=== PATIENT | male | born 1965 | race Caucasian/White ===

== ENCOUNTER → 2016-04-25 | Outpatient (CLI) | payer BC ==
[~2016-04-25] MED LIST: ALLO300T2 PO; FERR1TAB13 PO; FRRS300 PO; LECI1200 PO; LISI1TAB3 PO; LISI20TA3 PO; LSN20 PO; MULT-506 PO; ONDA8TAB6 PO; PANT40TA PO; POTA99TA PO; PROM25TA9 PO; PRT40 PO
[2016-04-25 13:20] LABS: BASO % 0.1 %; BASO ABS # 0.01 K/uL (0-0.2); COMPLETE YES; HEMATOCRIT 51.9 % (42-52); IG% 0.2 %; LYMPH % 7.3 %; LYMPH ABS # 1.12 K/uL (1.2-3.4); MEAN CELL VOLUME 95.1 fL (80-100); MEAN CORPUSCULAR HGB CONC 34.7 g/dl (32-36); MEAN PLATELET VOLUME 11.4 fL (7.4-10.4); MONO % 7.3 %; NEUT % 85.1 %; PLATELET COUNT 331 K/uL (130-400); RED BLOOD COUNT 5.46 M/uL (4.7-6.1); WHITE BLOOD COUNT 15.37 K/uL (4.8-10.8)
[2016-04-25 13:58] LABS: ALB/GLOB RATIO 0.9 (0.9-2); ALKALINE PHOSPHATASE 180 U/L (45-117); ALT/SGPT 61 U/L (12-78); AST/SGOT 47 U/L (15-37); BLOOD UREA NITROGEN 15 mg/dl (7-18); BUN/CREATININE RATIO 15.4 (10-20); CALCIUM 10.4 mg/dl (8.5-10.1); CARBON DIOXIDE 22 mmol/L (21-32); CHLORIDE 97 mmol/L (98-107); CREATININE 0.96 mg/dl (0.60-1.40); GLUCOSE 128 mg/dl (70-99); POTASSIUM 3.6 mmol/L (3.5-5.1); SODIUM 133 mmol/L (136-145)
== END | disposition home or self-care (01) ==
LOC: C.LAB1850 11:54
PROVIDERS: ATTEND Family Medicine
DX: R10.32 Left lower quadrant pain (principal); R11.2 Nausea with vomiting, unspecified

== ENCOUNTER 2016-04-26 02:06 | Inpatient (IN) | payer BC ==
[~2016-04-26] VITALS: Ht 175.3 cm; Wt 90.0 kg
[2016-04-26] MEDS ORDERED: PROMETHAZINE HCL INJ 12.5 MG in SODIUM CHLORIDE 0.9% 50ML 50 ML IV STA ×2 (02:37→03:58)
[2016-04-26] MEDS ORDERED: ALLO300T2 PO (02:40)
[2016-04-26] MEDS ORDERED: MULT-506 PO (02:40)
[2016-04-26] MEDS ORDERED: LISI1TAB3 PO (02:40)
[2016-04-26] MEDS ORDERED: ONDA8TAB6 PO (02:40)
[2016-04-26] MEDS ORDERED: PROM25TA9 PO (02:40)
[2016-04-26] MEDS ORDERED: OPTIRAY 320 IV PRN (02:45)
[2016-04-26 02:46] LABS: INR 1.1 (0.9-1.1); PARTIAL THROMBOPLASTIN RATIO 0.9; PROTHROMBIN TIME (PATIENT) 11.7 SECONDS (9.0-12.0)
[2016-04-26 02:51] LABS: ISTAT CREATININE 1.2 mg/dl (0.6-1.3); ISTAT IONIZED CALCIUM 1.1 mmol/l (1.12-1.32)
[2016-04-26 03:02] LABS: BUN/CREATININE RATIO 14.4 (10-20); CALCIUM 8.5 mg/dl (8.5-10.1); CREATININE 1.6 mg/dl (0.60-1.40); POTASSIUM 3.2 mmol/L (3.5-5.1)
[2016-04-26 03:12] LABS: BASO % 0.1 %; BASO ABS # 0.02 K/uL (0-0.2); COMPLETE YES; EOS % 0.3 %; HEMATOCRIT 40.8 % (42-52); IG% 0.5 %; LYMPH % 19.8 %; LYMPH ABS # 3.17 K/uL (1.2-3.4); MEAN CELL VOLUME 96.5 fL (80-100); MEAN CORPUSCULAR HEMOGLOBIN 32.9 pg (25-34); MEAN CORPUSCULAR HGB CONC 34.1 g/dl (32-36); MEAN PLATELET VOLUME 11.5 fL (7.4-10.4); MONO % 10.4 %; NEUT % 68.9 %; PLATELET COUNT 333 K/uL (130-400); RED BLOOD COUNT 4.23 M/uL (4.7-6.1); WHITE BLOOD COUNT 16.01 K/uL (4.8-10.8)
[2016-04-26] MEDS ORDERED: SODIUM CHLORIDE 0.9% 1000ML 1,000 ML IV STA (03:25)
[2016-04-26] MEDS ORDERED: GLUCAGON FOR INJ 1 MG VIAL SQ PRN (05:15)
[2016-04-26] MEDS ORDERED: ACETAMINOPHEN 325 MG TAB PO PRN (05:15)
[2016-04-26] MEDS ORDERED: ONDANSETRON INJ 2 MG/ML 2 ML VIAL IV PRN (05:15)
[2016-04-26] MEDS ORDERED: GLUCOSE 40% GEL 15 GM TUBE PO PRN (05:15)
[2016-04-26] MEDS ORDERED: GLUCOSE 10 TABS/TUBE PO PRN (05:15)
[2016-04-26] MEDS ORDERED: DEXTROSE 50% 50 ML SYR IV PRN (05:15)
[2016-04-26] MEDS ORDERED: ACETAMINOPHEN IV 100 ML IV PRN (05:15)
[2016-04-26] MEDS ORDERED: ZOLPIDEM TARTRATE 5 MG TAB PO PRN (05:15)
--- NOTE | 2016-04-26 05:45 | EMERGENCY ROOM VISIT NOTE ---
History Report prepared by Wade: Jamil Rockwell Under the Supervision of: Dr. Diamond Choi D.O. First contact with patient: 02:26 Chief Complaint: BLEEDING Stated Complaint: SYNCOPE/GI ASSESSMENT Nursing Triage Summary: patient brought in by ems patient reports V/D for days,patient reports 3-4 episodes of bright and dark red stool tonight patient reports 3 assisted falls at home patient reports lower abdominal pain ems reports blood pressure in 50s systolic on arrival History of Present Illness The patient is a 50 year old male who presents to the Emergency Room with complaints of persistent rectal bleeding beginning today. He states that he has "blacked out" at home three times today. He states that he has been having problems with vomiting and diarrhea since yesterday. The patient was seen by his PCP today for the vomiting and diarrhea, and was prescribed Zofran. He states that he began noticing blood in his stool after taking the Zofran. He denies noticing any blood in his vomit. The patient notes that he has not eaten anything in the past two days. He has a history of fatty liver, but states that he has not been drinking alcohol regularly. He denies any neck pain. The patient also complains of abdominal pain and nausea. He states that he had problems with dark stool several years ago, but has not had anything similar recently. His most recent colonoscopy was around three years ago. Source of History: patient Onset: Today Position: other (rectum) Quality: other (bleeding) Timing: other (persistent) Associated Symptoms: + abdominal pain, + diarrhea, + nausea, + vomiting, No neck pain Review of Systems See HPI for pertinent positives & negatives. A total of 10 systems reviewed and were otherwise negative. Past Medical & Surgical Medical Problems: (1) Dehydration (2) Enterocolitis (3) Fatty liver (4) Gout Family History No pertinent family history stated. Social History Smoking Status: Never Smoker Marital Status: Housing Status: lives with family Current/Historical Medications Scheduled Allopurinol (Zyloprim), 300 MG PO DAILY Lisinopril (Zestril), 30 MG PO DAILY Multivitamin (Multivitamin), 1 TAB PO DAILY Scheduled PRN Ondansetron Hcl (Zofran), 8 MG PO Q8 PRN for Nausea Promethazine Hcl (Phenergan), 25 MG PO TID PRN for Nausea Allergies Coded Allergies: Penicillins (Verified Allergy, Mild, 04/26/16) Physical Exam Vital Signs Date Time Temp Pulse Resp B/P Pulse Ox O2 Delivery O2 Flow Rate FiO2 04/26/16 05:05 92 14 97 04/26/16 05:03 84 18 116/70 97 Room Air 04/26/16 03:45 101/62 04/26/16 03:30 83 18 93 04/26/16 03:29 104/61 04/26/16 03:15 85 13 95 04/26/16 03:14 88/55 04/26/16 03:07 91/53 04/26/16 03:00 83 11 95 04/26/16 02:59 88/57 04/26/16 02:45 91 13 96 04/26/16 02:44 98/53 04/26/16 02:36 109/61 04/26/16 02:30 88 12 97 04/26/16 02:29 96/55 04/26/16 02:28 95 04/26/16 02:27 95/59 04/26/16 02:13 36.5 96 20 96/59 98 Room Air 04/26/16 02:13 96 Room Air Physical Exam HEENT: Head - normocephalic. 2 cm stellate laceration to the left lateral eyebrow. Pupils are equal, round, and reactive to light. Extraocular eye muscles are intact, and sclera are anicteric. Nose - moist nasal mucosa without discharge. Mouth - moist buccal mucosa. Oropharynx is nonerythematous and there is no tonsillar exudate or edema noted. Neck: Supple; no JVD, nuchal rigidity, cervical lymphadenopathy. Heart: Tachycardic rate with a regular rhythm. There is a normal S1 and S2 with no murmurs, clicks, or gallops appreciated. Lungs: Clear to auscultation bilaterally with no wheezes, rales, or rhonchi. Abdomen: Diffuse abdominal pain with palpation. Soft, nondistended, with good bowel sounds. There are no palpable pulsatile masses or hepatosplenomegaly. There is no guarding, rigidity, or rebound noted. Extremities: No evidence of cyanosis, clubbing, or edema. There are easily palpable peripheral pulses. Skin: Pale, warm and dry with good turgor and no rashes. Medical Decision & Procedures ER Provider Diagnostic Interpretation: CT results per statrad and my review. CT ABDOMEN & PELVIS: Comparison is made to ultrasound dated 07/25/[address] dated 01/13/2008. There is no evidence of acute diverticulitis. There is fluid filled small bowel and fluid levels throughout the colon suggesting enteritis/enterocolitis with diarrhea. There is no evidence of bowel obstruction. Visualized appendix is normal. The liver, gallbladder, spleen, pancreas, and adrenal glands are within normal limits. Kidneys are similar in size and contour, without hydronephrosis. Urinary bladder and prostate are unremarkable. No acute osseous findings. Bilateral pars defects at L5 with grade 1 spondylolisthesis. Laboratory Results Test 04/26/16 02:05 04/26/16 02:35 Prothrombin Time 11.7 SECONDS (9.0-12.0) Prothromb Time International Ratio 1.1 (0.9-1.1) Activated Partial Thromboplast Time 22.9 SECONDS (21.0-31.0) Partial Thromboplastin Ratio 0.9 Estimated Average Glucose 108 mg/dl Hemoglobin A1c 5.4 % (4.5-5.6) Total Bilirubin 1.0 mg/dl (0.2-1) Direct Bilirubin 0.2 mg/dl (0-0.2) Aspartate Amino Transf (AST/SGOT) 34 U/L (15-37) Alanine Aminotransferase (ALT/SGPT) 46 U/L (12-78) Alkaline Phosphatase 126 U/L (45-117) Total Protein 6.4 gm/dl (6.4-8.2) Albumin 3.1 gm/dl (3.4-5.0) Bedside Hemoglobin 15.0 g/dl (14.0-18.0) Bedside Hematocrit 44 % (42-52) Bedside Sodium 131 mEq/L (135-144) Bedside Potassium 3.1 mEq/L (3.3-5.0) Bedside Chloride 93 mEq/L (101-112) Bedside Total CO2 20 mEq/l (24-31) Bedside Blood Urea Nitrogen 28 mg/dl (7-18) Bedside Creatinine 1.2 mg/dl (0.6-1.3) Bedside Glucose (other) 254 mg/dl (70-99) Bedside Ionized Calcium (Ghada) 1.10 mmol/l (1.12-1.32) Date/Time Source Procedure Growth Status 04/26/16 02:30 Stool C.difficile Toxin B Gene (PCR) - Final No C. difficile toxin B gene detected Complete Laboratory results per my review. Medications Administered Medications (Trade) Dose Ordered Sig/Dave Route Start Time Stop Time Status Last Admin Dose Admin Promethazine HCl 12.5 mg/Sodium Chloride 50.5 ml @ 204 mls/hr NOW STAT IV 04/26/16 02:37 04/26/16 02:51 DC 04/26/16 03:16 204 MLS/HR Sodium Chloride 1,000 ml @ 250 mls/hr Q4H STAT IV 04/26/16 03:25 04/26/16 07:24 DC 04/26/16 04:13 250 MLS/HR Promethazine HCl/ Sodium Chloride (Phenergan Inj/ Nss 50ml) 50.5 ml @ 204 mls/hr NOW STAT IV 04/26/16 03:58 04/26/16 04:12 DC 04/26/16 04:11 204 MLS/HR Procedure Medications include: Promethazine HCl/NSS IV 2; normal saline solution IV Laceration Repair Location: left eyebrow Total length: 2 cm Complexity: simple Verbal consent was obtained after the risks and benefits were explained, including but not limited to bleeding, scarring, infection, pain, and bone/joint /nerve damage. At this time, the risks of the procedure are less than the risks of NOT performing the procedure. A time out was taken and the correct patient and site identified. Copious irrigation was performed using normal saline. The wound was explored for foreign bodies and none found. Examination revealed no injury to deep structures such as tendons, bone, or significant blood vessels. Debridement was not performed. The patient's eyebrow was shaved. The wound edges were approximated using Dermabond. Hemostasis and excellent approximation was achieved. Antibacterial ointment and a sterile dressing applied. Detailed wound care instructions and signs and symptoms of infection reviewed with the the patient. No complications and the patient tolerated the procedure well. ED Course 0233: Past medical records reviewed. The patient was evaluated in room B11B. A complete history and physical exam was performed. An IV lock was initiated and labs are drawn as above. The patient was typed and screened for blood. He had received 2 L of IV normal saline solution prehospital for significant hypotension. The patient had a large bloody mildly movement here upon arrival in the emergency department. 0345 the patient is resting comfortably at this time. He is hemodynamically stable. He has had no further GI bleeding. He went for a CT scan of the abdomen/pelvis. 0444: Upon reevaluation, I discussed findings and results with the patient. His nausea has improved. He verbalized agreement of the treatment plan. I spoke with Dr. Milan of the [facility] Hospitalist Service. The patient will be evaluated for further management and care. 0508: I offered to sew the patient's eyebrow laceration with sutures, but he refused. He agreed to let me use Dermabond skin glue. See the procedure note for details. Medical Decision The patient is a 50 year old male who presents to the ED with rectal bleeding. Differential diagnosis includes syncope, hypovolemia, hypotension, anemia, GI bleeding, as well as other etiologies were considered. Lab interpretation: White blood cell count: 16; hemoglobin 13.9. BUN 23. Creatinine 1.6. Glucose 249 I had evaluated the patient's laboratory studies which were drawn earlier today at the primary care office. He did have some elevated liver function tests at that time. This is a 50-year-old male patient whose had intermittent episodes of diarrhea and nausea. He has been followed by his PCP. He originally was prescribed Phenergan and then Zofran. However, today, the patient developed episodes of syncope and lightheadedness and GI bleeding. The patient did fall to the ground striking the left side of his head and suffered a small laceration to The left eyebrow. This was repaired with Dermabond. CT scan of the abdomen/ pelvis shows evidence of enterocolitis. the patient was hemodynamically stable here in the emergency department. I discussed the case with the [facility] hospitalist and they will evaluate for further management. Consults Time Called: [phone] Consulting Physician: Dr. Milan -[facility] Returned Call: [phone] Discussed the patient's case. The patient will be evaluated for further management. Impression Primary Impression: Lower GI bleed Additional Impressions: Syncope Hyperglycemia Enterocolitis Scribe Attestation The scribe's documentation has been prepared under my direction and personally reviewed by me in its entirety. I confirm that the note above accurately reflects all work, treatment, procedures, and medical decision making performed by me. Departure Information Dispostion Being Evaluated By Hospitalist Referrals Sidney Arthur M.D. (PCP) Patient Instructions My [facility] Problem Qualifiers
--- NOTE | 2016-04-26 06:12 | History and Physical ---
History & Physical Date & Time of Service: Apr 26, 2016 at 06:01 Chief Complaint: Syncope/Gi Assessment Primary Care Physician: Sidney Arthur M.D. History of Present Illness Source: patient, spouse The patient is a 50-year-old male brought into the emergency department by EMS. He reports nausea, vomiting and diarrhea for 2 days, and has had 3-4 episodes of bright and dark red stools tonight. He's had 3 near falls at home, and was reported by EMS to have a systolic blood pressure in the 50s upon arrival. He reports some generalized abdominal discomfort. He denies any questionable food intake or liquid intake, recent travel, or sick exposures. Past Medical/Surgical History Medical Problems: (1) Fatty liver Status: Chronic (2) Gout Status: Chronic Social History Smoking Status: Never Smoker Smokeless Tobacco Use: No Alcohol Use: socially Marital Status: Housing status: lives with family Occupational Status: employed Immunizations History of Influenza Vaccine: No History of Tetanus Vaccine?: Unknown History of Pneumococcal: Unknown History of Hepatitis B Vaccine: No Multi-Drug Resistant Organisms History of MDRO: No Allergies Coded Allergies: Penicillins (Verified Allergy, Mild, 04/26/16) Home Medications Scheduled Allopurinol (Zyloprim), 300 MG PO DAILY Lisinopril (Zestril), 30 MG PO DAILY Multivitamin (Multivitamin), 1 TAB PO DAILY Scheduled PRN Ondansetron Hcl (Zofran), 8 MG PO Q8 PRN for Nausea Promethazine Hcl (Phenergan), 25 MG PO TID PRN for Nausea Review of Systems The patient denies chest pain, palpitations, shortness of breath, cough, lower extremity swelling, vision change, hearing change, sore throat, weight change, blood in urine or stool, dysuria, urinary frequency or urgency, memory loss, rash, focal weakness, numbness or tingling in arms or legs, arthralgias or myalgias, back or neck pain, night sweats, or allergy symptoms. The review of systems is otherwise negative other than for that already noted above, and at least 10 systems have been reviewed. Physical Exam Vital Signs Date Time Temp Pulse Resp B/P Pulse Ox O2 Delivery O2 Flow Rate FiO2 04/26/16 05:03 84 18 116/70 97 Room Air 04/26/16 03:45 101/62 04/26/16 03:30 83 18 93 04/26/16 03:29 104/61 04/26/16 03:15 85 13 95 04/26/16 03:14 88/55 04/26/16 03:07 91/53 04/26/16 03:00 83 11 95 04/26/16 02:59 88/57 04/26/16 02:45 91 13 96 04/26/16 02:44 98/53 04/26/16 02:36 109/61 04/26/16 02:30 88 12 97 04/26/16 02:29 96/55 04/26/16 02:28 95 04/26/16 02:27 95/59 04/26/16 02:13 36.5 96 20 96/59 98 Room Air 04/26/16 02:13 96 Room Air The patient is awake, well-developed and adequately nourished, alert and oriented 3, normocephalic and atraumatic, dominik complexion, lying in bed and in no acute distress. HEENT--PERRL, EOMI, mucous membranes and oropharynx dry. Neck--supple, no JVD or bruits, thyroid normal, trachea midline, no adenopathy. Heart--normal S1 and S2, no extra beats, no murmurs, rubs or gallops. Lungs--clear bilaterally with good air movement, no respiratory distress, no accessory muscle use. Abdomen--normal bowel sounds and soft, nontender and nondistended, no hernias or masses, no organomegaly. Extremities--no cyanosis, clubbing or edema. There are good distal pulses b/l. Dermatologic--normal skin turgor, normal color, warm and dry, no abnormal lymph nodes, no rash. Dominik facial complexion as noted. Neurologic--cranial nerves II through XII grossly intact, motor and sensory examination normal. Rheumatologic--normal range of motion, nontender, muscles and joints. Psychiatric--normal affect. Diagnostics Laboratory Results Results Past 24 Hours Test 04/26/16 02:05 04/26/16 02:35 Range/Units White Blood Count 16.01 4.8-10.8 K/uL Red Blood Count 4.23 4.7-6.1 M/uL Hemoglobin 13.9 14.0-18.0 g/dL Hematocrit 40.8 42-52 % Mean Corpuscular Volume 96.5 80-100 fL Mean Corpuscular Hemoglobin 32.9 25-34 pg Mean Corpuscular Hemoglobin Concent 34.1 32-36 g/dl Platelet Count 333 130-400 K/uL Mean Platelet Volume 11.5 7.4-10.4 fL Neutrophils (%) (Auto) 68.9 % Lymphocytes (%) (Auto) 19.8 % Monocytes (%) (Auto) 10.4 % Eosinophils (%) (Auto) 0.3 % Basophils (%) (Auto) 0.1 % Neutrophils # (Auto) 11.03 1.4-6.5 K/uL Lymphocytes # (Auto) 3.17 1.2-3.4 K/uL Monocytes # (Auto) 1.66 0.11-0.59 K/uL Eosinophils # (Auto) 0.05 0-0.5 K/uL Basophils # (Auto) 0.02 0-0.2 K/uL RDW Standard Deviation 45.2 36.4-46.3 fL RDW Coefficient of Variation 13.1 11.5-14.5 % Immature Granulocyte % (Auto) 0.5 % Immature Granulocyte # (Auto) 0.08 0.00-0.02 K/uL Prothrombin Time 11.7 9.0-12.0 SECONDS Prothromb Time International Ratio 1.1 0.9-1.1 Activated Partial Thromboplast Time 22.9 21.0-31.0 SECONDS Partial Thromboplastin Ratio 0.9 Sodium Level 134 136-145 mmol/L Potassium Level 3.2 3.5-5.1 mmol/L Chloride Level 95 98-107 mmol/L Carbon Dioxide Level 21 21-32 mmol/L Anion Gap 18.0 23.0 16-25 mmol/L Blood Urea Nitrogen 23 7-18 mg/dl Creatinine 1.60 0.60-1.40 mg/dl Est Creatinine Clear Calc Drug Dose 62.6 ml/min Estimated GFR () 58.2 Estimated GFR (Non- 50.2 BUN/Creatinine Ratio 14.4 10-20 Random Glucose 249 70-99 mg/dl Calcium Level 8.5 8.5-10.1 mg/dl Total Bilirubin 1.0 0.2-1 mg/dl Direct Bilirubin 0.2 0-0.2 mg/dl Aspartate Amino Transf (AST/SGOT) 34 15-37 U/L Alanine Aminotransferase (ALT/SGPT) 46 12-78 U/L Alkaline Phosphatase 126 45-117 U/L Total Protein 6.4 6.4-8.2 gm/dl Albumin 3.1 3.4-5.0 gm/dl Bedside Hemoglobin 15.0 14.0-18.0 g/dl Bedside Hematocrit 44 42-52 % Bedside Sodium 131 135-144 mEq/L Bedside Potassium 3.1 3.3-5.0 mEq/L Bedside Chloride 93 101-112 mEq/L Bedside Total CO2 20 24-31 mEq/l Bedside Blood Urea Nitrogen 28 7-18 mg/dl Bedside Creatinine 1.2 0.6-1.3 mg/dl Bedside Glucose (other) 254 70-99 mg/dl Bedside Ionized Calcium (Ghada) 1.10 1.12-1.32 mmol/l Microbiology Results 04/26/16 C.difficile Toxin B Gene (PCR), Cosmo Batch Pending 04/26/16 Shiga Toxin Test, Cosmo Batch Pending 04/26/16 Stool Culture, Cosmo Batch Pending Impression Assessment and Plan Colitis/enterocolitis--CT suggests this diagnosis as a cause of his abdominal discomfort and rectal bleeding. He'll be admitted to the medical floor, and allowed to have a full liquid diet as tolerated. I Have ordered stool culture and stool for C. difficile studies. He'll be placed on Cipro 400 mg IV every 12 hours, Flagyl 500 mg IV every 8 hours, Protonix 40 mg IV daily, Zofran 4 mg IV every 6 hours when necessary, and normal saline with potassium chloride 20 mEq 100 mils per hour. Renal insufficiency--creatinine on entrance laboratories is 1.60. Hold lisinopril 30 mg by mouth daily. IV fluids as noted above. Check BMP and magnesium in the a.m. Hyperglycemia--no history of diabetes mellitus. We'll check hemoglobin A1c. Place on Accu-Cheks before meals and at bedtime with NovoLog coverage. Gout--continue allopurinol 300 mg by mouth daily. Level of Care Med/Surg Advanced Directives Existing Advance Directive: No Existing Living Will: No Existing Power of Linux System Administrator: No Resuscitation Status FULL RESUSCITATION VTE Prophylaxis VTE Risk Assessment Done? Y/N: Yes Risk Level: Low Given or contraindicated: SCD's Social Service Consult None Apply
[2016-04-26] MEDS: INSULIN ASPART 100 UNITS/ML 3 ML PEN SC SCH ×4 (07:00→21:00)
[2016-04-26 07:14] LABS: ESTIMATED AVERAGE GLUCOSE 108 mg/dl; HA1C FLAG Normal (Normal)
[2016-04-26 08:46] VITALS: BP 109/70; PULSE 91; TEMP 37.1; O2SAT 97
[2016-04-26 08:52] VITALS: BP 109/70; PULSE 91; TEMP 37.1; O2SAT 97; Ht 175.3 cm; Wt 90.0 kg
--- NOTE | 2016-04-26 09:08 | DIAGNOSTIC IMAGING REPORT ---
CT SCAN OF THE ABDOMEN AND PELVIS WITHOUT CONTRAST CLINICAL HISTORY: Diffuse abdominal pain. Possible diverticulitis. COMPARISON STUDY: 01/13/2008 TECHNIQUE: CT scan of the abdomen and pelvis was performed from the lung bases to the proximal femurs. Images are reviewed in the axial, sagittal, and coronal planes. IV contrast was not administered for this examination. CT DOSE: 663.62 mGy.cm FINDINGS: Lower chest: The heart is normal in size and configuration, without pericardial effusion. The lung bases and pleural spaces are clear. Liver: The unenhanced liver is normal in size, contour, and attenuation. There is no intrahepatic biliary ductal dilatation. Gallbladder: Distended. No calculi identified Spleen: Normal in size and attenuation. Pancreas: Unremarkable. Adrenal glands: Unremarkable. Kidneys: No renal, ureteral, or bladder calculi are visualized. Bowel: There are no transition zones indicate bowel obstruction. The appendix appears normal. There is no acute diverticulitis. There are fluid-filled small bowel loops, and there are air-fluid levels within the colon. An enteritis cannot be excluded. Peritoneum: There is no intraperitoneal free air or abdominal ascites. There is a tiny fat-containing ventral hernia. Vasculature: The abdominal aorta is normal in course and caliber. Adenopathy: None. Pelvic viscera: Prostatic calcifications are visualized. Skeletal structures: No destructive osseous lesions are seen. There is bilateral L5 spondylolysis. There is a grade 1 spondylolisthesis of L5 and S1. IMPRESSION: 1. No evidence of bowel obstruction. No evidence of free air 2. Normal appendix 3. No evidence of acute diverticulitis. 4. No renal, ureteral, or bladder calculi identified 5. Fluid-filled small bowel loops and air-fluid levels within the colon. An enteritis cannot be excluded. Electronically signed by: Kd Mary M.D. 04/26/2016 9:07 AM Dictated Date/Time: 04/26/2016 9:03 AM
[2016-04-26] MEDS: CIPROFLOXACIN / D5W 400 MG in PREMIXED IN D5W 200 ML IV SCH ×2 (09:19→21:01)
[2016-04-26] MEDS: METRONIDAZOLE / NSS 500 MG in PREMIXED NSS 100 ML IV SCH ×2 (09:19→15:32)
[2016-04-26] MEDS: NSS + 20MEQ KCL 1000ML 1,000 ML IV SCH ×2 (09:19→18:29)
[2016-04-26] MEDS: PANTOprazole INJ 40 MG in SYRINGE 0 ML IV SCH (10:50)
[2016-04-26 12:40] LABS: BASO % 0.1 %; BASO ABS # 0.01 K/uL (0-0.2); COMPLETE YES; EOS % 0.1 %; HEMATOCRIT 31.7 % (42-52); IG% 0.4 %; LYMPH % 16.3 %; LYMPH ABS # 1.65 K/uL (1.2-3.4); MEAN CELL VOLUME 94.6 fL (80-100); MEAN CORPUSCULAR HEMOGLOBIN 31.6 pg (25-34); MEAN CORPUSCULAR HGB CONC 33.4 g/dl (32-36); MEAN PLATELET VOLUME 10.2 fL (7.4-10.4); MONO % 8.9 %; NEUT % 74.2 %; PLATELET COUNT 247 K/uL (130-400); RED BLOOD COUNT 3.35 M/uL (4.7-6.1); WHITE BLOOD COUNT 10.15 K/uL (4.8-10.8)
[2016-04-26 13:01] LABS: CALCIUM 7.8 mg/dl (8.5-10.1); CREATININE 0.79 mg/dl (0.60-1.40); POTASSIUM 3.9 mmol/L (3.5-5.1)
--- NOTE | 2016-04-26 15:20 | Progress Note ---
Subjective Date of Service: Apr 26, 2016. Subjective Pt evaluation today including: conversation w/ patient, physical exam, lab review, review of studies, review of inpatient medication list Pain: no abdominal pain today PO Intake: adequate, clears Voiding: no voiding problems patient feeling better overall, only one BM today, was small, still with some blood no vomiting, tolerating full tray of liquids no abdominal pain updated patient and about lab work and imaging Problem List Medical Problems: (1) Hyperglycemia Status: Acute (2) Lower GI bleed Status: Acute (3) Syncope Status: Acute Review of Systems Constitutional: + fatigue, + weakness Abdomen: + diarrhea (slowing down significantly), + pain All Other Systems: Reviewed and Negative Medications Current Inpatient Medications Medications (Trade) Dose Ordered Sig/Dave Route Start Time Stop Time Status Last Admin Dose Admin Ioversol (Optiray 320) 125 ml UD PRN IV 04/26/16 02:45 04/30/16 02:44 Acetaminophen (Tylenol Tab) 650 mg Q4H PRN PO 04/26/16 05:15 05/26/16 05:14 Zolpidem Tartrate (Ambien Tab) 5 mg HSZ PRN PO 04/26/16 05:15 05/26/16 05:14 Ondansetron HCl 4 mg 4 mg Q6H PRN IV 04/26/16 05:15 05/26/16 05:14 Acetaminophen 100 ml @ 400 mls/hr Q8H PRN IV 04/26/16 05:15 05/26/16 05:14 Potassium Chloride/Sodium Chloride 1,000 ml @ 100 mls/hr Q10H IV 04/26/16 09:00 05/26/16 05:06 04/26/16 09:19 100 MLS/HR Pantoprazole Sodium/Syringe (Protonix Inj/ Syringe) 10 ml @ 5 mls/min DAILY@11 IV 04/26/16 11:00 05/26/16 10:59 04/26/16 10:50 5 MLS/MIN Insulin Aspart (novoLOG ASPART) SLIDING SCALE If C... ACHS SC 04/26/16 07:00 05/26/16 06:59 04/26/16 13:37 6 UNITS Glucose (Glucose 40% Gel) UD PRN PO 04/26/16 05:15 05/26/16 05:14 Glucose (Glucose Chew Tab) 1 tabs UD PRN PO 04/26/16 05:15 05/26/16 05:14 Dextrose (Dextrose 50% 50ML Syringe) 50 ml UD PRN IV 04/26/16 05:15 05/26/16 05:14 Glucagon 1 mg 1 mg UD PRN SQ 04/26/16 05:15 05/26/16 05:14 Ciprofloxacin/ Dextrose 400 mg/ Prmx 200 ml @ 100 mls/hr Q12 IV 04/26/16 09:00 05/06/16 08:59 04/26/16 09:19 100 MLS/HR Metronidazole/Prmx (Flagyl / Nss/ Premixed Nss) 100 ml @ 100 mls/hr Q8H IV 04/26/16 08:00 05/06/16 07:59 04/26/16 09:19 100 MLS/HR Objective Vital Signs Date Time Temp Pulse Resp B/P Pulse Ox O2 Delivery O2 Flow Rate FiO2 04/26/16 08:52 37.1 91 19 109/70 97 Room Air 04/26/16 08:46 37.1 91 19 109/70 97 Room Air 04/26/16 06:50 78 16 97 04/26/16 06:45 78 15 95 04/26/16 06:44 122/76 04/26/16 06:40 78 14 95 04/26/16 06:35 76 16 96 04/26/16 06:30 78 9 95 04/26/16 06:29 125/73 04/26/16 06:29 83 04/26/16 06:25 75 20 95 04/26/16 06:20 86 16 93 04/26/16 06:15 94 16 131/82 96 04/26/16 06:10 93 17 96 04/26/16 06:05 83 17 95 04/26/16 06:00 76 15 95 04/26/16 05:59 122/74 04/26/16 05:55 81 10 95 04/26/16 05:50 75 16 95 04/26/16 05:45 78 16 97 04/26/16 05:44 116/72 04/26/16 05:40 88 16 96 04/26/16 05:35 73 14 96 04/26/16 05:30 74 16 96 04/26/16 05:29 130/71 04/26/16 05:25 72 20 97 04/26/16 05:20 70 16 97 04/26/16 05:15 93 13 92/78 97 04/26/16 05:10 79 13 98 04/26/16 05:05 92 14 97 04/26/16 05:03 84 18 116/70 97 Room Air 04/26/16 03:45 101/62 04/26/16 03:30 83 18 93 04/26/16 03:29 104/61 04/26/16 03:15 85 13 95 04/26/16 03:14 88/55 04/26/16 03:07 91/53 04/26/16 03:00 83 11 95 04/26/16 02:59 88/57 04/26/16 02:45 91 13 96 04/26/16 02:44 98/53 04/26/16 02:36 109/61 04/26/16 02:30 88 12 97 04/26/16 02:29 96/55 04/26/16 02:28 95 04/26/16 02:27 95/59 04/26/16 02:13 36.5 96 20 96/59 98 Room Air 04/26/16 02:13 96 Room Air Physical Exam General Appearance: WD/WN, no apparent distress Eyes: normal inspection, EOMI, sclerae normal ENT: normal ENT inspection, hearing grossly normal, pharynx normal Neck: supple, no adenopathy, no JVD, trachea midline Respiratory/Chest: chest non-tender, lungs clear, normal breath sounds, no respiratory distress, no accessory muscle use Cardiovascular: regular rate, rhythm, no edema, no gallop, no JVD, no murmur Abdomen: normal bowel sounds, non tender, soft, no organomegaly Extremities: normal range of motion, non-tender, normal inspection, no pedal edema, no calf tenderness Neurologic/Psychiatric: scaler II-XII nml as tested, no motor/sensory deficits, alert, normal mood/affect, oriented x 3 Skin: normal color, warm/dry, no rash Lymphatic: no adenopathy Laboratory Results Last 24 Hours Test 04/26/16 02:05 04/26/16 02:35 04/26/16 11:25 04/26/16 12:06 White Blood Count 16.01 K/uL 10.15 K/uL Red Blood Count 4.23 M/uL 3.35 M/uL Hemoglobin 13.9 g/dL 10.6 g/dL Hematocrit 40.8 % 31.7 % Mean Corpuscular Volume 96.5 fL 94.6 fL Mean Corpuscular Hemoglobin 32.9 pg 31.6 pg Mean Corpuscular Hemoglobin Concent 34.1 g/dl 33.4 g/dl Platelet Count 333 K/uL 247 K/uL Mean Platelet Volume 11.5 fL 10.2 fL Neutrophils (%) (Auto) 68.9 % 74.2 % Lymphocytes (%) (Auto) 19.8 % 16.3 % Monocytes (%) (Auto) 10.4 % 8.9 % Eosinophils (%) (Auto) 0.3 % 0.1 % Basophils (%) (Auto) 0.1 % 0.1 % Neutrophils # (Auto) 11.03 K/uL 7.54 K/uL Lymphocytes # (Auto) 3.17 K/uL 1.65 K/uL Monocytes # (Auto) 1.66 K/uL 0.90 K/uL Eosinophils # (Auto) 0.05 K/uL 0.01 K/uL Basophils # (Auto) 0.02 K/uL 0.01 K/uL RDW Standard Deviation 45.2 fL 45.1 fL RDW Coefficient of Variation 13.1 % 13.3 % Immature Granulocyte % (Auto) 0.5 % 0.4 % Immature Granulocyte # (Auto) 0.08 K/uL 0.04 K/uL Prothrombin Time 11.7 SECONDS Prothromb Time International Ratio 1.1 Activated Partial Thromboplast Time 22.9 SECONDS Partial Thromboplastin Ratio 0.9 Sodium Level 134 mmol/L 135 mmol/L Potassium Level 3.2 mmol/L 3.9 mmol/L Chloride Level 95 mmol/L 102 mmol/L Carbon Dioxide Level 21 mmol/L 23 mmol/L Anion Gap 18.0 mmol/L 23.0 mmol/L 10.0 mmol/L Blood Urea Nitrogen 23 mg/dl 15 mg/dl Creatinine 1.60 mg/dl 0.79 mg/dl Est Creatinine Clear Calc Drug Dose 62.6 ml/min 126.9 ml/min Estimated GFR () 58.2 123.1 Estimated GFR (Non- 50.2 106.2 BUN/Creatinine Ratio 14.4 19.0 Random Glucose 249 mg/dl 115 mg/dl Estimated Average Glucose 108 mg/dl Hemoglobin A1c 5.4 % Calcium Level 8.5 mg/dl 7.8 mg/dl Total Bilirubin 1.0 mg/dl Direct Bilirubin 0.2 mg/dl Aspartate Amino Transf (AST/SGOT) 34 U/L Alanine Aminotransferase (ALT/SGPT) 46 U/L Alkaline Phosphatase 126 U/L Total Protein 6.4 gm/dl Albumin 3.1 gm/dl Bedside Hemoglobin 15.0 g/dl Bedside Hematocrit 44 % Bedside Sodium 131 mEq/L Bedside Potassium 3.1 mEq/L Bedside Chloride 93 mEq/L Bedside Total CO2 20 mEq/l Bedside Blood Urea Nitrogen 28 mg/dl Bedside Creatinine 1.2 mg/dl Bedside Glucose (other) 254 mg/dl Bedside Ionized Calcium (Ghada) 1.10 mmol/l Bedside Glucose 178 mg/dl Assessment and Plan 50 yo male with sudden onset of bloody diarrhea with abdominal pain, only one episode of vomiting - Acute bloody diarrhea: already resolving, enteritis on CT scan, continue Cipro and Flagyl C diff negative, stool culture pending no history of eating undercooked chicken or beef no family h/o inflammatory bowel disease will repeat labs tomorrow - Mild acute blood loss anemia: Hb down to 13 from 15, will repeat tomorrow - KIM: prerenal etiology, continue IV fluids, Cr down to baseline so resolved continue to hold lisinopril - Hyperglycemia, h/o DM type II diet controlled: HbA1c is 5.4, so it is well controlled likely elevated due to stress continue Novolog Plan: repeat labs tomorrow, advance diet, likely d/c to home tomorrow if feeling better
[2016-04-26 15:23] VITALS: BP 134/80; PULSE 74; TEMP 37.1; O2SAT 98
[2016-04-26 23:16] VITALS: BP 101/51; PULSE 74; TEMP 36.8; O2SAT 98
[2016-04-27] MEDS: METRONIDAZOLE / NSS 500 MG in PREMIXED NSS 100 ML IV SCH ×4 (00:26→23:37)
[2016-04-27] MEDS: NSS + 20MEQ KCL 1000ML 1,000 ML IV SCH ×3 (05:18→21:20)
[2016-04-27 07:23] LABS: BASO % 0.5 %; BASO ABS # 0.04 K/uL (0-0.2); EOS % 0.5 %; HEMATOCRIT 26.9 % (42-52); IG% 0.1 %; LYMPH ABS # 1.58 K/uL (1.2-3.4); MEAN CELL VOLUME 95.7 fL (80-100); MEAN CORPUSCULAR HEMOGLOBIN 31.7 pg (25-34); MEAN CORPUSCULAR HGB CONC 33.1 g/dl (32-36); MEAN PLATELET VOLUME 10.1 fL (7.4-10.4); NEUT % 65.9 %; PLATELET COUNT 202 K/uL (130-400); RED BLOOD COUNT 2.81 M/uL (4.7-6.1); WHITE BLOOD COUNT 7.53 K/uL (4.8-10.8)
[2016-04-27 07:49] VITALS: BP 127/70; PULSE 64; TEMP 36.7; O2SAT 99
[2016-04-27 07:52] LABS: COMPLETE YES; POLYCHROMASIA 1+
[2016-04-27 08:00] LABS: BUN/CREATININE RATIO 10.3 (10-20); CALCIUM 8.2 mg/dl (8.5-10.1); CREATININE 0.7 mg/dl (0.60-1.40); MAGNESIUM 2.1 mg/dl (1.8-2.4); POTASSIUM 3.9 mmol/L (3.5-5.1)
[2016-04-27] MEDS: INSULIN ASPART 100 UNITS/ML 3 ML PEN SC SCH ×5 (08:00→23:47)
[2016-04-27] MEDS: CIPROFLOXACIN / D5W 400 MG in PREMIXED IN D5W 200 ML IV SCH ×2 (08:55→21:17)
[2016-04-27] MEDS: PANTOprazole INJ 40 MG in SYRINGE 0 ML IV SCH (10:53)
--- NOTE | 2016-04-27 11:59 | Gastrointestinal Consultation ---
Gastrointestinal Consultation Date of Consultation: Apr 27, 2016 History of Present Illness Patient is a 50 year old male who presented to ER after several episodes of bright red blood per rectum on Thursday. He reports that he had an upset stomach while at work on and Thursday, he began to have several episodes of bright red blood (about 3) with pre-syncope type symptoms. He was brought to ER and admitted. He has done well since admission on Thursday, he has had a couple of very small volume red stools, he is not having diarrhea, stool cx's are negative. No chronic diarrhea, alarm symptoms such as weight loss or anemia that he is aware of. No family hx of GI malignancies or IBD. He feels dramatically improved, he is up walking around the room, ate normal diet this am. Hb has declined since admission, stool this am was yellow/brown. Past Medical/Surgical History Medical Problems: (1) Hyperglycemia Status: Acute (2) Lower GI bleed Status: Acute (3) Syncope Status: Acute Social History Smoking Status: Never Smoker Marital Status: Housing Status: lives with family Occupation Status: employed Allergies Coded Allergies: Penicillins (Verified Allergy, Mild, 04/26/16) Current Medications Home Meds and Scripts Medications Dose Route/Sig Max Daily Dose Days Date Category Phenergan (Promethazine HCl) 25 Mg Tab 25 Mg PO TID PRN 04/26/16 Reported Zofran (Ondansetron HCl) 8 Mg Tab 8 Mg PO Q8 PRN 04/26/16 Reported Multivitamin (Multivitamins) Tab 1 Tab PO DAILY 04/26/16 Reported Zestril (Lisinopril) 30 Mg Tab 30 Mg PO DAILY 04/26/16 Reported Zyloprim (Allopurinol) 300 Mg Tab 300 Mg PO DAILY 04/26/16 Reported Review of Systems Constitutional: No chills, No fatigue, No fever, No problem reported, No see HPI, No sweats, No weakness, No weight loss Eyes: No diplopia, No discharge, No eye pain, No problem reported, No redness, No see HPI, No worsening of vision ENT: No dental problems, No hearing loss, No nasal symptoms, No pain on swallowing, No problem reported, No see HPI, No sore throat, No tinnitus, No trouble swallowing, No unusual epistaxis Respiratory: No cough, No dyspnea at rest, No dyspnea on exertion, No hemoptysis, No problem reported, No see HPI, No shortness of breath, No sputum, No wheezing Cardiac: No PND, No chest pain, No claudication, No edema, No orthopnea, No palpitations, No problem reported, No see HPI Abdomen: + see HPI Musculoskeletal: No calf pain, No joint pain, No muscle pain, No problem reported, No see HPI, No swelling Male : No dysuria, No hematuria, No incontinence, No nocturia more than once/ night, No problem reported, No see HPI, No sexual dysfunction, No slowing stream , No urinary frequency Physical Exam Date Time Temp Pulse Resp B/P Pulse Ox O2 Delivery O2 Flow Rate FiO2 04/27/16 09:31 Room Air 04/27/16 07:49 36.7 64 17 127/70 99 Room Air 04/27/16 00:30 Room Air 04/26/16 23:16 36.8 74 16 101/51 98 Room Air 04/26/16 15:45 Room Air 04/26/16 15:23 37.1 74 18 134/80 98 Room Air General Appearance: WD/WN, + pertinent finding (up walking in room during examination) ENT: normal ENT inspection Neck: supple, no adenopathy Respiratory/Chest: chest non-tender, lungs clear, normal breath sounds Cardiovascular: regular rate, rhythm, no edema, no gallop Abdomen: normal bowel sounds, non tender Extremities: normal range of motion Neurologic/Psych: event marketing specialist II-XII nml as tested Laboratory Results Last 24 Hours Test 04/26/16 12:06 04/26/16 17:06 04/26/16 20:58 04/26/16 23:20 White Blood Count 10.15 K/uL Red Blood Count 3.35 M/uL Hemoglobin 10.6 g/dL Hematocrit 31.7 % Mean Corpuscular Volume 94.6 fL Mean Corpuscular Hemoglobin 31.6 pg Mean Corpuscular Hemoglobin Concent 33.4 g/dl Platelet Count 247 K/uL Mean Platelet Volume 10.2 fL Neutrophils (%) (Auto) 74.2 % Lymphocytes (%) (Auto) 16.3 % Monocytes (%) (Auto) 8.9 % Eosinophils (%) (Auto) 0.1 % Basophils (%) (Auto) 0.1 % Neutrophils # (Auto) 7.54 K/uL Lymphocytes # (Auto) 1.65 K/uL Monocytes # (Auto) 0.90 K/uL Eosinophils # (Auto) 0.01 K/uL Basophils # (Auto) 0.01 K/uL RDW Standard Deviation 45.1 fL RDW Coefficient of Variation 13.3 % Immature Granulocyte % (Auto) 0.4 % Immature Granulocyte # (Auto) 0.04 K/uL Sodium Level 135 mmol/L Potassium Level 3.9 mmol/L Chloride Level 102 mmol/L Carbon Dioxide Level 23 mmol/L Anion Gap 10.0 mmol/L Blood Urea Nitrogen 15 mg/dl Creatinine 0.79 mg/dl Est Creatinine Clear Calc Drug Dose 126.9 ml/min Estimated GFR () 123.1 Estimated GFR (Non- 106.2 BUN/Creatinine Ratio 19.0 Random Glucose 115 mg/dl Calcium Level 7.8 mg/dl Bedside Glucose 91 mg/dl 138 mg/dl Stool Occult Blood POSITIVE Test 04/27/16 07:10 04/27/16 08:08 White Blood Count 7.53 K/uL Red Blood Count 2.81 M/uL Hemoglobin 8.9 g/dL Hematocrit 26.9 % Mean Corpuscular Volume 95.7 fL Mean Corpuscular Hemoglobin 31.7 pg Mean Corpuscular Hemoglobin Concent 33.1 g/dl Platelet Count 202 K/uL Mean Platelet Volume 10.1 fL Neutrophils (%) (Auto) 65.9 % Lymphocytes (%) (Auto) 21.0 % Monocytes (%) (Auto) 12.0 % Eosinophils (%) (Auto) 0.5 % Basophils (%) (Auto) 0.5 % Neutrophils # (Auto) 4.96 K/uL Lymphocytes # (Auto) 1.58 K/uL Monocytes # (Auto) 0.90 K/uL Eosinophils # (Auto) 0.04 K/uL Basophils # (Auto) 0.04 K/uL RDW Standard Deviation 46.3 fL RDW Coefficient of Variation 13.4 % Immature Granulocyte % (Auto) 0.1 % Immature Granulocyte # (Auto) 0.01 K/uL Polychromasia 1+ Sodium Level 134 mmol/L Potassium Level 3.9 mmol/L Chloride Level 101 mmol/L Carbon Dioxide Level 28 mmol/L Anion Gap 5.0 mmol/L Blood Urea Nitrogen 7 mg/dl Creatinine 0.70 mg/dl Est Creatinine Clear Calc Drug Dose 143.2 ml/min Estimated GFR () 129.3 Estimated GFR (Non- 111.6 BUN/Creatinine Ratio 10.3 Random Glucose 106 mg/dl Calcium Level 8.2 mg/dl Magnesium Level 2.1 mg/dl Bedside Glucose 100 mg/dl Impression Patient is a 50 year old male who presents with hematochezia, all mostly resolved, but acute anemia without etiology. Plan -Stool cx's have been negative -improved, but etiology is still not known -given age, history, and anemia will plan on Colonoscopy-and consider EGD tomorrow as per Dr. Haque's opinion -Clears today -Colon prep tonight
--- NOTE | 2016-04-27 13:04 | Progress Note ---
Subjective Date of Service: Apr 27, 2016. Subjective Pt evaluation today including: conversation w/ patient, physical exam, lab review, review of inpatient medication list Pain: no pain today PO Intake: tolerating light diet Voiding: no voiding problems feeling better, no further bloody bowel movements, no pain today, no vomiting discussed with Dr. Almendarez, he would like to perform EGD and colonoscopy tomorrow given drop in Hb patient okay with this plan Problem List Medical Problems: (1) Hyperglycemia Status: Acute (2) Lower GI bleed Status: Acute (3) Syncope Status: Acute Review of Systems Abdomen: + GI bleeding (yesterday, none today), + diarrhea All Other Systems: Reviewed and Negative Medications Current Inpatient Medications Medications (Trade) Dose Ordered Sig/Dave Route Start Time Stop Time Status Last Admin Dose Admin Ioversol (Optiray 320) 125 ml UD PRN IV 04/26/16 02:45 04/30/16 02:44 Acetaminophen (Tylenol Tab) 650 mg Q4H PRN PO 04/26/16 05:15 05/26/16 05:14 Zolpidem Tartrate (Ambien Tab) 5 mg HSZ PRN PO 04/26/16 05:15 05/26/16 05:14 Ondansetron HCl 4 mg 4 mg Q6H PRN IV 04/26/16 05:15 05/26/16 05:14 Acetaminophen 100 ml @ 400 mls/hr Q8H PRN IV 04/26/16 05:15 05/26/16 05:14 Potassium Chloride/Sodium Chloride 1,000 ml @ 100 mls/hr Q10H IV 04/26/16 09:00 05/26/16 05:06 04/27/16 05:18 100 MLS/HR Pantoprazole Sodium/Syringe (Protonix Inj/ Syringe) 10 ml @ 5 mls/min DAILY@11 IV 04/26/16 11:00 05/26/16 10:59 04/27/16 10:53 5 MLS/MIN Insulin Aspart (novoLOG ASPART) SLIDING SCALE If C... ACHS SC 04/26/16 07:00 05/26/16 06:59 04/27/16 08:00 4 UNITS Glucose (Glucose 40% Gel) UD PRN PO 04/26/16 05:15 05/26/16 05:14 Glucose (Glucose Chew Tab) 1 tabs UD PRN PO 04/26/16 05:15 05/26/16 05:14 Dextrose (Dextrose 50% 50ML Syringe) 50 ml UD PRN IV 04/26/16 05:15 05/26/16 05:14 Glucagon 1 mg 1 mg UD PRN SQ 04/26/16 05:15 05/26/16 05:14 Ciprofloxacin/ Dextrose 400 mg/ Prmx 200 ml @ 100 mls/hr Q12 IV 04/26/16 09:00 05/06/16 08:59 04/27/16 08:55 100 MLS/HR Metronidazole/Prmx (Flagyl / Nss/ Premixed Nss) 100 ml @ 100 mls/hr Q8H IV 04/26/16 08:00 05/06/16 07:59 04/27/16 08:53 100 MLS/HR Polyethylene (Miralax Powder Packet) 68 gm TODAY@ PO 04/27/16 17:00 04/28/16 05:01 Objective Vital Signs Date Time Temp Pulse Resp B/P Pulse Ox O2 Delivery O2 Flow Rate FiO2 04/27/16 09:31 Room Air 04/27/16 07:49 36.7 64 17 127/70 99 Room Air 04/27/16 00:30 Room Air 04/26/16 23:16 36.8 74 16 101/51 98 Room Air 04/26/16 15:45 Room Air 04/26/16 15:23 37.1 74 18 134/80 98 Room Air Physical Exam General Appearance: WD/WN, no apparent distress Eyes: normal inspection, EOMI, sclerae normal ENT: normal ENT inspection, hearing grossly normal, pharynx normal Neck: supple, no adenopathy, no JVD, trachea midline Respiratory/Chest: chest non-tender, lungs clear, normal breath sounds, no respiratory distress, no accessory muscle use Cardiovascular: regular rate, rhythm, no edema, no gallop, no JVD, no murmur Abdomen: normal bowel sounds, non tender, soft, no organomegaly Extremities: normal range of motion, non-tender, normal inspection, no pedal edema, no calf tenderness Neurologic/Psychiatric: event marketing intern II-XII nml as tested, no motor/sensory deficits, alert, normal mood/affect, oriented x 3 Skin: normal color, warm/dry, no rash Laboratory Results Last 24 Hours Test 04/26/16 17:06 04/26/16 20:58 04/26/16 23:20 04/27/16 07:10 Bedside Glucose 91 mg/dl 138 mg/dl Stool Occult Blood POSITIVE White Blood Count 7.53 K/uL Red Blood Count 2.81 M/uL Hemoglobin 8.9 g/dL Hematocrit 26.9 % Mean Corpuscular Volume 95.7 fL Mean Corpuscular Hemoglobin 31.7 pg Mean Corpuscular Hemoglobin Concent 33.1 g/dl Platelet Count 202 K/uL Mean Platelet Volume 10.1 fL Neutrophils (%) (Auto) 65.9 % Lymphocytes (%) (Auto) 21.0 % Monocytes (%) (Auto) 12.0 % Eosinophils (%) (Auto) 0.5 % Basophils (%) (Auto) 0.5 % Neutrophils # (Auto) 4.96 K/uL Lymphocytes # (Auto) 1.58 K/uL Monocytes # (Auto) 0.90 K/uL Eosinophils # (Auto) 0.04 K/uL Basophils # (Auto) 0.04 K/uL RDW Standard Deviation 46.3 fL RDW Coefficient of Variation 13.4 % Immature Granulocyte % (Auto) 0.1 % Immature Granulocyte # (Auto) 0.01 K/uL Polychromasia 1+ Sodium Level 134 mmol/L Potassium Level 3.9 mmol/L Chloride Level 101 mmol/L Carbon Dioxide Level 28 mmol/L Anion Gap 5.0 mmol/L Blood Urea Nitrogen 7 mg/dl Creatinine 0.70 mg/dl Est Creatinine Clear Calc Drug Dose 143.2 ml/min Estimated GFR () 129.3 Estimated GFR (Non- 111.6 BUN/Creatinine Ratio 10.3 Random Glucose 106 mg/dl Calcium Level 8.2 mg/dl Magnesium Level 2.1 mg/dl Test 04/27/16 08:08 04/27/16 12:00 Bedside Glucose 100 mg/dl 106 mg/dl Assessment and Plan 50 yo male with sudden onset of bloody diarrhea with abdominal pain, only one episode of vomiting - Acute bloody diarrhea: resolved, had two brown BM today enteritis on CT scan, continue Cipro and Flagyl today, day # 2 C diff negative, stool culture negative no history of eating undercooked chicken or beef no family h/o inflammatory bowel disease plan for endoscopy tomorrow - Acute blood loss anemia: Hb down to 8.9 from 13.9, 5gm dropped, asked for GI evaluation plan to have EGD and colonoscopy tomorrow NPO after midnight, prep tonight - KIM: prerenal etiology, Cr down to baseline so resolved, stop fluids continue to hold lisinopril and can resume on d/c - Hyperglycemia, h/o DM type II diet controlled: HbA1c is 5.4, so it is well controlled likely elevated due to stress continue Novolog Plan: endoscopy tomorrow, discharge pending findings, should discuss with GI tomorrow
[2016-04-27 15:35] VITALS: BP 120/72; PULSE 66; TEMP 36.2; O2SAT 98
[2016-04-27] MEDS: POLYETHYLENE (MIRALAX) 17 GM PACK PO SCH (17:03)
[2016-04-27] MEDS ORDERED: NURSING DECISION MEDICATION ORDER SCH (22:45)
[2016-04-28 00:17] VITALS: BP 124/66; PULSE 68; TEMP 36.8; O2SAT 98
[2016-04-28 00:30] VITALS: BP 124/66; PULSE 68; TEMP 36.8; O2SAT 98
[2016-04-28] MEDS: POLYETHYLENE (MIRALAX) 17 GM PACK PO SCH (05:07)
[2016-04-28] MEDS: INSULIN ASPART 100 UNITS/ML 3 ML PEN SC SCH ×4 (05:44→22:05)
[2016-04-28 07:11] VITALS: BP 112/65; PULSE 66; TEMP 36.8; O2SAT 97
[2016-04-28 07:36] LABS: BASO % 0.3 %; BASO ABS # 0.02 K/uL (0-0.2); EOS % 0.9 %; HEMATOCRIT 25.6 % (42-52); IG% 0.3 %; LYMPH ABS # 1.27 K/uL (1.2-3.4); MEAN CELL VOLUME 94.5 fL (80-100); MEAN CORPUSCULAR HEMOGLOBIN 31.4 pg (25-34); MEAN CORPUSCULAR HGB CONC 33.2 g/dl (32-36); MEAN PLATELET VOLUME 9.6 fL (7.4-10.4); MONO % 10.1 %; NEUT % 70.4 %; PLATELET COUNT 233 K/uL (130-400); RED BLOOD COUNT 2.71 M/uL (4.7-6.1); WHITE BLOOD COUNT 7.05 K/uL (4.8-10.8)
[2016-04-28 08:16] LABS: BUN/CREATININE RATIO 5.5 (10-20); CALCIUM 8.3 mg/dl (8.5-10.1); CREATININE 0.69 mg/dl (0.60-1.40); MAGNESIUM 2.3 mg/dl (1.8-2.4); POTASSIUM 3.7 mmol/L (3.5-5.1)
[2016-04-28] MEDS: METRONIDAZOLE / NSS 500 MG in PREMIXED NSS 100 ML IV SCH ×2 (08:29→16:22)
[2016-04-28 08:58] LABS: COMPLETE YES
[2016-04-28] MEDS ORDERED: MIDAZOLAM HCL 1 MG/ML 2ML VIAL ONE (09:10)
--- NOTE | 2016-04-28 09:11 | Progress Note ---
Subjective Date of Service: Apr 28, 2016. Subjective Pt evaluation today including: conversation w/ patient, conversation w/ family , physical exam, chart review, lab review, review of studies, review of inpatient medication list Just came back from EGD/c-scope. Feels hungry and thirsty. EGD and colonoscopy results noted. No abd pain, no cp, no sob. Problem List Medical Problems: (1) Hyperglycemia Status: Acute (2) Lower GI bleed Status: Acute (3) Syncope Status: Acute Review of Systems All Other Systems: Reviewed and Negative Medications Acetaminophen 100 ml @ 400 mls/hr Q8H PRN IV; Start 04/26/16 at 05:15; Stop 05/26/16 at 05:14 Acetaminophen (Tylenol Tab) 650 mg Q4H PRN PO; Start 04/26/16 at 05:15; Stop at 05:14 Ciprofloxacin/ Dextrose 400 mg/ Prmx 200 ml @ 100 mls/hr Q12 IV Last administered on 04/27/16 21:17; Admin Dose 100 MLS/HR; Start 04/26/16 at 09:00 ; Stop 05/06/16 at 08:59 Dextrose (Dextrose 50% 50ML Syringe) 50 ml UD PRN IV; Start 04/26/16 at 05:15; Stop 05/26/16 at 05:14 Glucagon 1 mg 1 mg UD PRN SQ; Start 04/26/16 at 05:15; Stop 05/26/16 at 05:14 Glucose (Glucose 40% Gel) UD PRN PO; Start 04/26/16 at 05:15; Stop 05/26/16 at 05:14 Glucose (Glucose Chew Tab) 1 tabs UD PRN PO; Start 04/26/16 at 05:15; Stop at 05:14 Insulin Aspart (novoLOG ASPART) SLIDING SCALE If C... Q6 SC; Start at 00:00; Stop 05/28/16 at 00:00 Ioversol (Optiray 320) 125 ml UD PRN IV; Start 04/26/16 at 02:45; Stop 04/30/16 at 02:44 Metronidazole/Prmx (Flagyl / Nss/ Premixed Nss) 100 ml @ 100 mls/hr Q8H IV Last administered on 04/28/16 08:29; Admin Dose 100 MLS/HR; Start 04/26/16 at 08:00; Stop 05/06/16 at 07:59 Ondansetron HCl 4 mg 4 mg Q6H PRN IV; Start 04/26/16 at 05:15; Stop 05/26/16 at 05:14 Pantoprazole Sodium/Syringe (Protonix Inj/ Syringe) 10 ml @ 5 mls/min DAILY@11 IV Last administered on 04/27/16 10:53; Admin Dose 5 MLS/MIN; Start 04/26/16 at 11:00; Stop 05/26/16 at 10:59 Potassium Chloride/Sodium Chloride 1,000 ml @ 100 mls/hr Q10H IV Last administered on 04/27/16 21:20; Admin Dose 100 MLS/HR; Start 04/26/16 at 09:00 ; Stop 05/26/16 at 05:06 Zolpidem Tartrate (Ambien Tab) 5 mg HSZ PRN PO; Start 04/26/16 at 05:15; Stop 05/26/16 at 05:14 Objective Vital Signs Date Time Temp Pulse Resp B/P Pulse Ox O2 Delivery O2 Flow Rate FiO2 04/28/16 07:11 36.8 66 16 112/65 97 Room Air 04/28/16 00:30 36.8 68 17 124/66 98 Room Air 04/28/16 00:17 36.8 68 17 124/66 98 Room Air 04/27/16 20:47 Room Air 04/27/16 15:35 36.2 66 16 120/72 98 Room Air 04/27/16 15:20 Room Air 04/27/16 09:31 Room Air Physical Exam Comments: nad, aox3, coherent with fluent speech eomi, perrl, anicteric s1 s2 rrr, no m/r/g ctab no w/r/r abd soft, nt/nd +BS no LE edema cn 2-12 grossly intact without facial drooping Laboratory Results Last 24 Hours Test 04/27/16 12:00 04/27/16 16:35 04/27/16 20:40 04/27/16 23:42 Bedside Glucose 106 mg/dl 88 mg/dl 125 mg/dl 98 mg/dl Test 04/28/16 05:32 04/28/16 07:00 04/28/16 08:19 Bedside Glucose 138 mg/dl 88 mg/dl White Blood Count 7.05 K/uL Red Blood Count 2.71 M/uL Hemoglobin 8.5 g/dL Hematocrit 25.6 % Mean Corpuscular Volume 94.5 fL Mean Corpuscular Hemoglobin 31.4 pg Mean Corpuscular Hemoglobin Concent 33.2 g/dl Platelet Count 233 K/uL Mean Platelet Volume 9.6 fL Neutrophils (%) (Auto) 70.4 % Lymphocytes (%) (Auto) 18.0 % Monocytes (%) (Auto) 10.1 % Eosinophils (%) (Auto) 0.9 % Basophils (%) (Auto) 0.3 % Neutrophils # (Auto) 4.97 K/uL Lymphocytes # (Auto) 1.27 K/uL Monocytes # (Auto) 0.71 K/uL Eosinophils # (Auto) 0.06 K/uL Basophils # (Auto) 0.02 K/uL RDW Standard Deviation 45.8 fL RDW Coefficient of Variation 13.3 % Immature Granulocyte % (Auto) 0.3 % Immature Granulocyte # (Auto) 0.02 K/uL Red Blood Cell Morphology Unremarkable Sodium Level 137 mmol/L Potassium Level 3.7 mmol/L Chloride Level 102 mmol/L Carbon Dioxide Level 29 mmol/L Anion Gap 6.0 mmol/L Blood Urea Nitrogen 4 mg/dl Creatinine 0.69 mg/dl Est Creatinine Clear Calc Drug Dose 145.3 ml/min Estimated GFR () 130.1 Estimated GFR (Non- 112.3 BUN/Creatinine Ratio 5.5 Random Glucose 89 mg/dl Calcium Level 8.3 mg/dl Magnesium Level 2.3 mg/dl Impression: - Normal esophagus. - Z-line regular, 36 cm from the incisors. - Gastritis. Biopsied. - One non-obstructing non-bleeding duodenal ulcer with a visible vessel. Injected. Treated with bipolar cautery. - Nodular mucosa at 2nd part of the duodenum and at 3rd part of the duodenum. Biopsied. Recommendation: - Perform a colonoscopy as previously scheduled. - Give Protonix (pantoprazole): initiate therapy with 80 mg IV bolus, then 8 mg/hr IV by continuous infusion for 3 days. The Protonix 40 mg per day. - Repeat the upper endoscopy in 6 weeks for surveillance. Maryjane Haque D.O. Impression: - The examined portion of the ileum was normal. - Mild diverticulosis in the entire examined colon. 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 Biopsied. - Internal hemorrhoids. - The examination was otherwise normal. Recommendation: - Discharge patient to home (ambulatory). - Advance diet as tolerated today. - Await pathology results. - Repeat colonoscopy in 3 years for surveillance based on pathology results. Maryjane Haque D.O. Assessment and Plan 50 yo M with abdominal pain, n/v, BRBPR 1. abd pain/brbpr - EGD/colonoscopy today - non-bleeding ulcer with visible vessel s/p cautery - will require 3-day infusion of protonix followed by po protonix daily - biopsies of duodenum and colon to be f/u outpatient with GI - will need repeat EGD in 6 weeks to re-assess ulcer - repeat colonoscopy in 3 years 2. hyperglycemia - a1c 5.4, reports no h/o DM - cont to monitor glucose 3. KIM - 2/2 volume depletion + failure of autoregulation from ACEI - resolved 4. Electrolyte abnormalities - hyponatremia with hypokalemia - likely from decreased po intake - resolved
[2016-04-28] MEDS ORDERED: PROPOFOL IV EMULSION 10 MG/ML 20 ML VIAL IV ONE (09:59)
[2016-04-28] MEDS ORDERED: LIDOCAINE HCL 2% 2 ML VIAL (20MG/ML) ONE (09:59)
--- NOTE | 2016-04-28 10:06 | Anesthesiology Progress Note ---
Anesthesia Post Op Note Date & Time Apr 28, 2016 at 10:06 Vital Signs Pain Intensity: 0 Vital Signs Past 12 Hours Date Time Temp Pulse Resp B/P Pulse Ox O2 Delivery O2 Flow Rate FiO2 04/28/16 10:00 68 16 94/55 99 Room Air 04/28/16 09:07 37.2 67 18 133/68 99 Room Air 04/28/16 07:40 Room Air 04/28/16 07:11 36.8 66 16 112/65 97 Room Air 04/28/16 00:30 36.8 68 17 124/66 98 Room Air 04/28/16 00:17 36.8 68 17 124/66 98 Room Air Notes Mental Status: alert / awake / arousable, participated in evaluation Pt Amnestic to Procedure: Yes Nausea / Vomiting: adequately controlled Pain: adequately controlled Airway Patency, RR, SpO2: stable & adequate BP & HR: stable & adequate Hydration State: stable & adequate Anesthetic Complications: no major complications apparent
[2016-04-28 10:53] VITALS: BP 118/66; PULSE 66; TEMP 36.6; O2SAT 97
--- NOTE | 2016-04-28 11:06 | GI REPORT ---
Procedure Date: 04/28/2016 9:27 AM Procedure: Upper GI endoscopy Indications: Acute post hemorrhagic anemia Medicines: Monitored Anesthesia Care Complications: No immediate complications. Estimated blood loss: Minimal. Estimated Blood Loss: Estimated blood loss was minimal. Procedure: Pre-Anesthesia Assessment: - Prior to the procedure, a History and Physical was performed, and patient medications, allergies and sensitivities were reviewed. The patient's tolerance of previous anesthesia was reviewed. - The risks and benefits of the procedure and the sedation options and risks were discussed with the patient. All questions were answered and informed consent was obtained. - Patient identification and proposed procedure were verified prior to the procedure by the physician, the nurse and the account development representative. The procedure was verified in the procedure room. - Pre-procedure physical examination revealed no contraindications to sedation. - ASA Grade Assessment: II - A patient with mild systemic disease. - The anesthesia plan was to use monitored anesthesia care (MAC). - After reviewing the risks and benefits, the patient was deemed in satisfactory condition to undergo the procedure. - Immediately prior to administration of medications, the patient was re-assessed for adequacy to receive sedatives. - The heart rate, respiratory rate, oxygen saturations, blood pressure, adequacy of pulmonary ventilation, and response to care were monitored throughout the procedure. - The physical status of the patient was re-assessed after the procedure. After obtaining informed consent, the endoscope was passed under direct vision. Throughout the procedure, the patient's blood pressure, pulse, and oxygen saturations were monitored continuously. The Scope was introduced through the mouth, and advanced to the third part of duodenum. The upper GI endoscopy was accomplished without difficulty. The patient tolerated the procedure well. Findings: The examined esophagus was normal. The Z-line was regular and was found 36 cm from the incisors. Diffuse mild inflammation characterized by congestion (edema), erythema and granularity was found in the entire examined stomach. Biopsies were taken with a cold forceps for histology. Estimated blood loss was minimal. One non-obstructing non-bleeding cratered duodenal ulcer with a visible vessel was found in the duodenal bulb. The lesion was 15 mm in largest dimension. Area was successfully injected with 2 mL of a 1:10,000 solution of epinephrine for hemostasis. Coagulation for hemostasis using bipolar probe was successful. Diffuse nodular mucosa was found in the second part of the duodenum and in the third part of the duodenum. Biopsies for histology were taken with a cold forceps for evaluation of celiac disease. Estimated blood loss was minimal. Impression: - Normal esophagus. - Z-line regular, 36 cm from the incisors. - Gastritis. Biopsied. - One non-obstructing non-bleeding duodenal ulcer with a visible vessel. Injected. Treated with bipolar cautery. - Nodular mucosa at 2nd part of the duodenum and at 3rd part of the duodenum. Biopsied. Recommendation: - Perform a colonoscopy as previously scheduled. - Give Protonix (pantoprazole): initiate therapy with 80 mg IV bolus, then 8 mg/hr IV by continuous infusion for 3 days. The Protonix 40 mg per day. - Repeat the upper endoscopy in 6 weeks for surveillance. Maryjane Haque D.O. Maryjane Haque, 04/28/2016 10:06:33 AM This report has been signed electronically. Note Initiated On: 04/28/2016 9:27 AM I attest to the content of the Intraoperative Record and orders documented therein, exceptions below
--- NOTE | 2016-04-28 11:06 | GI REPORT ---
Procedure Date: 04/28/2016 9:38 AM Procedure: Colonoscopy Indications: Hematochezia Medicines: Monitored Anesthesia Care Complications: No immediate complications. Estimated blood loss: Minimal. Estimated Blood Loss: Estimated blood loss was minimal. Procedure: Pre-Anesthesia Assessment: - Prior to the procedure, a History and Physical was performed, and patient medications, allergies and sensitivities were reviewed. The patient's tolerance of previous anesthesia was reviewed. - The risks and benefits of the procedure and the sedation options and risks were discussed with the patient. All questions were answered and informed consent was obtained. - Patient identification and proposed procedure were verified prior to the procedure by the physician, the nurse and the harness cutter. The procedure was verified in the procedure room. - Pre-procedure physical examination revealed no contraindications to sedation. - ASA Grade Assessment: II - A patient with mild systemic disease. - After reviewing the risks and benefits, the patient was deemed in satisfactory condition to undergo the procedure. - The anesthesia plan was to use monitored anesthesia care (MAC). - Immediately prior to administration of medications, the patient was re-assessed for adequacy to receive sedatives. - The heart rate, respiratory rate, oxygen saturations, blood pressure, adequacy of pulmonary ventilation, and response to care were monitored throughout the procedure. - The physical status of the patient was re-assessed after the procedure. After I obtained informed consent, the scope was passed under direct vision. Throughout the procedure, the patient's blood pressure, pulse, and oxygen saturations were monitored continuously. The On-site loaner was introduced through the anus and advanced to the terminal ileum. The colonoscopy was performed without difficulty. The patient tolerated the procedure well. The quality of the bowel preparation was adequate to identify polyps 6 mm and larger in size. Findings: The perianal and digital rectal examinations were normal. Pertinent negatives include normal sphincter tone. The terminal ileum appeared normal. Many small-mouthed diverticula were found in the entire colon. A yellow appearing submucosal mass was found in the sigmoid colon. No bleeding was present. Biopsies were taken with a cold forceps for histology. Estimated blood loss was minimal. Internal hemorrhoids were found during retroflexion. The hemorrhoids were mild. The exam was otherwise without abnormality. Impression: - The examined portion of the ileum was normal. - Mild diverticulosis in the entire examined colon. 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 Biopsied. - Internal hemorrhoids. - The examination was otherwise normal. Recommendation: - Discharge patient to home (ambulatory). - Advance diet as tolerated today. - Await pathology results. - Repeat colonoscopy in 3 years for surveillance based on pathology results. Maryjane Haque D.O. Maryjane Haque, 04/28/2016 10:09:57 AM This report has been signed electronically. Note Initiated On: 04/28/2016 9:38 AM I attest to the content of the Intraoperative Record and orders documented therein, exceptions below
[2016-04-28] MEDS: NSS + 20MEQ KCL 1000ML 1,000 ML IV SCH ×2 (11:30→21:43)
[2016-04-28] MEDS: CIPROFLOXACIN / D5W 400 MG in PREMIXED IN D5W 200 ML IV SCH ×2 (11:30→21:44)
[2016-04-28] MEDS ORDERED: PANTOprazole INJ 80 MG in DEXTROSE 5% 100ML IV ONE (11:45)
[2016-04-28] MEDS: PANTOprazole INJ 40 MG in DEXTROSE 5% 100ML IV SCH ×3 (13:02→22:01)
[2016-04-28] MEDS ORDERED: NURSING VERBAL MED ORDER ONE (13:15)
[2016-04-28 15:38] VITALS: BP 124/70; PULSE 60; TEMP 36.2; O2SAT 99
[2016-04-28 18:44] LABS: HEMATOCRIT 27.5 % (42-52)
[2016-04-28 23:05] VITALS: BP 121/65; PULSE 73; TEMP 36.4; O2SAT 99
[2016-04-29] MEDS: METRONIDAZOLE / NSS 500 MG in PREMIXED NSS 100 ML IV SCH (00:50)
[2016-04-29] MEDS: PANTOprazole INJ 40 MG in DEXTROSE 5% 100ML IV SCH ×5 (03:30→23:30)
[2016-04-29] MEDS: NSS + 20MEQ KCL 1000ML 1,000 ML IV SCH ×2 (06:19→17:10)
[2016-04-29 07:22] VITALS: BP 127/64; PULSE 64; TEMP 36.8; O2SAT 99
[2016-04-29 07:51] LABS: BASO % 0.3 %; BASO ABS # 0.02 K/uL (0-0.2); EOS % 1.1 %; HEMATOCRIT 26.2 % (42-52); IG% 0.1 %; LYMPH % 16.6 %; MEAN CELL VOLUME 97.8 fL (80-100); MEAN CORPUSCULAR HEMOGLOBIN 31.3 pg (25-34); MEAN CORPUSCULAR HGB CONC 32.1 g/dl (32-36); MEAN PLATELET VOLUME 10.6 fL (7.4-10.4); MONO % 8.9 %; PLATELET COUNT 258 K/uL (130-400); RED BLOOD COUNT 2.68 M/uL (4.7-6.1); WHITE BLOOD COUNT 7.22 K/uL (4.8-10.8)
[2016-04-29] MEDS: INSULIN ASPART 100 UNITS/ML 3 ML PEN SC SCH (08:00)
[2016-04-29 08:17] LABS: COMPLETE YES
[2016-04-29 08:18] LABS: BUN/CREATININE RATIO 3.2 (10-20); CALCIUM 8.3 mg/dl (8.5-10.1); CREATININE 0.73 mg/dl (0.60-1.40); MAGNESIUM 2.3 mg/dl (1.8-2.4); POTASSIUM 3.7 mmol/L (3.5-5.1)
[2016-04-29] MEDS ORDERED: NURSING VERBAL MED ORDER ONE (10:15)
--- NOTE | 2016-04-29 10:48 | Gastroenterology Progress Note ---
Progress Note Date of Service: Apr 29, 2016 Subjective Pt evaluation today including: conversation w/ patient, physical exam, lab review Pt. was seen and evaluated this morning. He reports that he is hungry and would like to advance his diet. Denies any abdominal pain, nausea, vomiting, black/ bloody stools/emesis. He reports that he has had two loose/semi-formed stools since we have seen him yesterday. EGD 04/28/16: gastritis, nonobstructing nonbleeding duodenal ulcer - follow up EGD in 6 weeks Colonoscopy 04/28/16: sigmoid colon mass - biopsy pending, diverticula, internal hemorrhoids - follow up 3 years pending biopsy results Review of Systems Constitutional: No chills, No fever Respiratory: No cough, No shortness of breath Cardiac: No chest pain, No edema Abdomen: No GI bleeding, No constipation, No nausea, No pain, No vomiting Medications Current Inpatient Medications Medications (Trade) Dose Ordered Sig/Dave Route Start Time Stop Time Status Last Admin Dose Admin Ioversol (Optiray 320) 125 ml UD PRN IV 04/26/16 02:45 04/30/16 02:44 Acetaminophen (Tylenol Tab) 650 mg Q4H PRN PO 04/26/16 05:15 05/26/16 05:14 Zolpidem Tartrate (Ambien Tab) 5 mg HSZ PRN PO 04/26/16 05:15 05/26/16 05:14 Ondansetron HCl 4 mg 4 mg Q6H PRN IV 04/26/16 05:15 05/26/16 05:14 Acetaminophen 100 ml @ 400 mls/hr Q8H PRN IV 04/26/16 05:15 05/26/16 05:14 Potassium Chloride/Sodium Chloride (Nss + 20meq KCl 1000ml) 1,000 ml @ 100 mls/hr Q10H IV 04/26/16 09:00 05/26/16 05:06 04/29/16 06:19 100 MLS/HR Glucose (Glucose 40% Gel) UD PRN PO 04/26/16 05:15 05/26/16 05:14 Glucose (Glucose Chew Tab) 1 tabs UD PRN PO 04/26/16 05:15 05/26/16 05:14 Dextrose (Dextrose 50% 50ML Syringe) 50 ml UD PRN IV 04/26/16 05:15 05/26/16 05:14 Glucagon 1 mg 1 mg UD PRN SQ 04/26/16 05:15 05/26/16 05:14 Pantoprazole Sodium/Dextrose (Protonix Inj/D5 100ml) 100 ml @ 20 mls/hr Q5H IV 04/28/16 12:00 05/28/16 11:59 04/29/16 07:50 20 MLS/HR Objective Vital Signs Date Time Temp Pulse Resp B/P Pulse Ox O2 Delivery O2 Flow Rate FiO2 04/29/16 08:00 Room Air 04/29/16 07:22 36.8 64 16 127/64 99 Room Air 04/29/16 00:45 Room Air 04/28/16 23:05 36.4 73 16 121/65 99 Room Air 04/28/16 16:00 Room Air 04/28/16 15:38 36.2 60 14 124/70 99 Room Air 04/28/16 10:53 36.6 66 16 118/66 97 Room Air Physical Exam General Appearance: no apparent distress Eyes: PERRL ENT: hearing grossly normal Neck: supple Respiratory/Chest: lungs clear, normal breath sounds, no respiratory distress, no accessory muscle use Cardiovascular: regular rate, rhythm, no edema, no gallop, no JVD Abdomen: non tender, soft, no organomegaly, no pulsatile mass Neurologic/Psych: alert, normal mood/affect, oriented x 3 Skin: normal color Laboratory Results Last 24 Hours Test 04/28/16 11:40 04/28/16 17:28 04/28/16 18:28 04/28/16 22:04 Bedside Glucose 86 mg/dl 81 mg/dl 70 mg/dl Hemoglobin 8.9 g/dL Hematocrit 27.5 % Test 04/29/16 07:10 04/29/16 07:51 White Blood Count 7.22 K/uL Red Blood Count 2.68 M/uL Hemoglobin 8.4 g/dL Hematocrit 26.2 % Mean Corpuscular Volume 97.8 fL Mean Corpuscular Hemoglobin 31.3 pg Mean Corpuscular Hemoglobin Concent 32.1 g/dl Platelet Count 258 K/uL Mean Platelet Volume 10.6 fL Neutrophils (%) (Auto) 73.0 % Lymphocytes (%) (Auto) 16.6 % Monocytes (%) (Auto) 8.9 % Eosinophils (%) (Auto) 1.1 % Basophils (%) (Auto) 0.3 % Neutrophils # (Auto) 5.27 K/uL Lymphocytes # (Auto) 1.20 K/uL Monocytes # (Auto) 0.64 K/uL Eosinophils # (Auto) 0.08 K/uL Basophils # (Auto) 0.02 K/uL RDW Standard Deviation 47.9 fL RDW Coefficient of Variation 13.5 % Immature Granulocyte % (Auto) 0.1 % Immature Granulocyte # (Auto) 0.01 K/uL Red Blood Cell Morphology Unremarkable Sodium Level 137 mmol/L Potassium Level 3.7 mmol/L Chloride Level 102 mmol/L Carbon Dioxide Level 26 mmol/L Anion Gap 9.0 mmol/L Blood Urea Nitrogen 2 mg/dl Creatinine 0.73 mg/dl Est Creatinine Clear Calc Drug Dose 137.3 ml/min Estimated GFR () 127.1 Estimated GFR (Non- 109.7 BUN/Creatinine Ratio 3.2 Random Glucose 100 mg/dl Calcium Level 8.3 mg/dl Magnesium Level 2.3 mg/dl Bedside Glucose 101 mg/dl Assessment and Plan Mr. Childress is a 50 year old with BRBPR. He had an EGD and colonoscopy yesterday + diverticula and + duodenal ulcer. Protonix bolus and drip started. Continue IV Protonix through Switch to 40 mg Protonix BID daily x 4 weeks then 40 mg Protonix once daily at discharge Watch HGB monitor stools Transfuse if needed Advance diet as tolerated Suggest 6-8 weeks of iron 325 mg daily GI to sign off and watch peripherally. Please call with any questions. I have seen and evaluated the patient. He notes feeling well today. I would suggest continuing with Protonix for another 24 hours and transition to Protonix 40 g twice daily for 4 weeks then 1 time daily thereafter. The patient should also be discharged on daily iron supplement. We will plan to repeat an upper endoscopy in about 6-8 weeks. Please call with any questions or concerns. If patient doing well tomorrow afternoon may consider early discharge.
[2016-04-29 15:09] VITALS: BP 160/75; PULSE 66; TEMP 36.9; O2SAT 99
--- NOTE | 2016-04-29 15:20 | Progress Note ---
Subjective Date of Service: Apr 29, 2016. Subjective Pt evaluation today including: conversation w/ patient, physical exam, chart review, review of inpatient medication list Feeling fine. No further n/v/coffee-ground emesis. No dark stools. GOod appetite. Problem List Medical Problems: (1) Hyperglycemia Status: Acute (2) Lower GI bleed Status: Acute (3) Syncope Status: Acute Review of Systems All Other Systems: Reviewed and Negative Medications Acetaminophen 100 ml @ 400 mls/hr Q8H PRN IV; Start 04/26/16 at 05:15; Stop 05/26/16 at 05:14 Acetaminophen (Tylenol Tab) 650 mg Q4H PRN PO; Start 04/26/16 at 05:15; Stop at 05:14 Dextrose (Dextrose 50% 50ML Syringe) 50 ml UD PRN IV; Start 04/26/16 at 05:15; Stop 05/26/16 at 05:14 Ferrous Sulfate (Feosol Tab) 325 mg QAM PO; Start 04/30/16 at 09:00; Stop at 08:59 Glucagon 1 mg 1 mg UD PRN SQ; Start 04/26/16 at 05:15; Stop 05/26/16 at 05:14 Glucose (Glucose 40% Gel) UD PRN PO; Start 04/26/16 at 05:15; Stop 05/26/16 at 05:14 Glucose (Glucose Chew Tab) 1 tabs UD PRN PO; Start 04/26/16 at 05:15; Stop at 05:14 Ioversol (Optiray 320) 125 ml UD PRN IV; Start 04/26/16 at 02:45; Stop 04/30/16 at 02:44 Ondansetron HCl 4 mg 4 mg Q6H PRN IV; Start 04/26/16 at 05:15; Stop 05/26/16 at 05:14 Pantoprazole Sodium/Dextrose (Protonix Inj/D5 100ml) 100 ml @ 20 mls/hr Q5H IV Last administered on 04/29/16t 13:19; Admin Dose 20 MLS/HR; Start 04/28/16 at 12 :00; Stop 05/28/16 at 11:59 Potassium Chloride/Sodium Chloride (Nss + 20meq KCl 1000ml) 1,000 ml @ 100 mls/ hr Q10H IV Last administered on 04/29/16t 06:19; Admin Dose 100 MLS/HR; Start at 09:00; Stop 05/26/16 at 05:06 Zolpidem Tartrate (Ambien Tab) 5 mg HSZ PRN PO; Start 04/26/16 at 05:15; Stop 05/26/16 at 05:14 Objective Vital Signs Date Time Temp Pulse Resp B/P Pulse Ox O2 Delivery O2 Flow Rate FiO2 04/29/16 15:09 36.9 66 16 160/75 99 Room Air 04/29/16 08:00 Room Air 04/29/16 07:22 36.8 64 16 127/64 99 Room Air 04/29/16 00:45 Room Air 04/28/16 23:05 36.4 73 16 121/65 99 Room Air 04/28/16 16:00 Room Air 04/28/16 15:38 36.2 60 14 124/70 99 Room Air Physical Exam Comments: nad, aox3 eomi, perrl, anicteric s1 s2 rrr, no murmurs appreciated ctab no w/r/r abd soft, nt/nd +BS no cva tend no LE edema cn 2-12 grossly intact without facial drooping, fluent speech and coherent Laboratory Results Last 24 Hours Test 04/28/16 17:28 04/28/16 18:28 04/28/16 22:04 04/29/16 07:10 Bedside Glucose 81 mg/dl 70 mg/dl Hemoglobin 8.9 g/dL 8.4 g/dL Hematocrit 27.5 % 26.2 % White Blood Count 7.22 K/uL Red Blood Count 2.68 M/uL Mean Corpuscular Volume 97.8 fL Mean Corpuscular Hemoglobin 31.3 pg Mean Corpuscular Hemoglobin Concent 32.1 g/dl Platelet Count 258 K/uL Mean Platelet Volume 10.6 fL Neutrophils (%) (Auto) 73.0 % Lymphocytes (%) (Auto) 16.6 % Monocytes (%) (Auto) 8.9 % Eosinophils (%) (Auto) 1.1 % Basophils (%) (Auto) 0.3 % Neutrophils # (Auto) 5.27 K/uL Lymphocytes # (Auto) 1.20 K/uL Monocytes # (Auto) 0.64 K/uL Eosinophils # (Auto) 0.08 K/uL Basophils # (Auto) 0.02 K/uL RDW Standard Deviation 47.9 fL RDW Coefficient of Variation 13.5 % Immature Granulocyte % (Auto) 0.1 % Immature Granulocyte # (Auto) 0.01 K/uL Red Blood Cell Morphology Unremarkable Sodium Level 137 mmol/L Potassium Level 3.7 mmol/L Chloride Level 102 mmol/L Carbon Dioxide Level 26 mmol/L Anion Gap 9.0 mmol/L Blood Urea Nitrogen 2 mg/dl Creatinine 0.73 mg/dl Est Creatinine Clear Calc Drug Dose 137.3 ml/min Estimated GFR () 127.1 Estimated GFR (Non- 109.7 BUN/Creatinine Ratio 3.2 Random Glucose 100 mg/dl Calcium Level 8.3 mg/dl Magnesium Level 2.3 mg/dl Test 04/29/16 07:51 Bedside Glucose 101 mg/dl Assessment and Plan 50 yo M with abdominal pain, n/v, BRBPR 1. abd pain/brbpr - non-bleeding ulcer with visible vessel s/p cautery - will require 3-day infusion of protonix followed by po protonix daily, to finish 04/30 - biopsies of duodenum and colon to be f/u outpatient with GI - will need repeat EGD in 6 weeks to re-assess ulcer - repeat colonoscopy in 3 years 2. hyperglycemia - a1c 5.4, reports no h/o DM - may stop glucose monitoring 3. KIM - 2/2 volume depletion + failure of autoregulation from ACEI - resolved 4. Electrolyte abnormalities - hyponatremia with hypokalemia - likely from decreased po intake - resolved
[2016-04-29 16:00] VITALS: O2SAT 99
[2016-04-30 00:05] VITALS: BP 133/63; PULSE 63; TEMP 36.9; O2SAT 96
[2016-04-30] MEDS: NSS + 20MEQ KCL 1000ML 1,000 ML IV SCH ×3 (03:03→22:10)
[2016-04-30] MEDS: PANTOprazole INJ 40 MG in DEXTROSE 5% 100ML IV SCH ×4 (05:04→19:16)
[2016-04-30 07:39] VITALS: BP 110/62; PULSE 66; TEMP 36.8; O2SAT 94
[2016-04-30] MEDS: FERROUS SULFATE 325 MG TAB PO SCH (09:08)
--- NOTE | 2016-04-30 11:23 | Progress Note ---
Subjective Date of Service: Apr 30, 2016. Subjective Pt evaluation today including: conversation w/ patient, conversation w/ family , physical exam, review of inpatient medication list Remains on IV protonix until tomorrow. No chest pain, no epigastric pain. No n/v. No dark tarry stools. GOod appetite. Problem List Medical Problems: (1) Hyperglycemia Status: Acute (2) Lower GI bleed Status: Acute (3) Syncope Status: Acute Review of Systems All Other Systems: Reviewed and Negative Medications Acetaminophen 100 ml @ 400 mls/hr Q8H PRN IV; Start 04/26/16 at 05:15; Stop 05/26/16 at 05:14 Acetaminophen (Tylenol Tab) 650 mg Q4H PRN PO; Start 04/26/16 at 05:15; Stop at 05:14 Dextrose (Dextrose 50% 50ML Syringe) 50 ml UD PRN IV; Start 04/26/16 at 05:15; Stop 05/26/16 at 05:14 Ferrous Sulfate (Feosol Tab) 325 mg QAM PO Last administered on 04/30/16 09:08; Admin Dose 325 MG; Start 04/30/16 at 09:00; Stop 05/30/16 at 08:59 Glucagon 1 mg 1 mg UD PRN SQ; Start 04/26/16 at 05:15; Stop 05/26/16 at 05:14 Glucose (Glucose 40% Gel) UD PRN PO; Start 04/26/16 at 05:15; Stop 05/26/16 at 05:14 Glucose (Glucose Chew Tab) 1 tabs UD PRN PO; Start 04/26/16 at 05:15; Stop at 05:14 Ondansetron HCl 4 mg 4 mg Q6H PRN IV; Start 04/26/16 at 05:15; Stop 05/26/16 at 05:14 Pantoprazole Sodium/Dextrose (Protonix Inj/D5 100ml) 100 ml @ 20 mls/hr Q5H IV Last administered on 04/30/16 09:11; Admin Dose 20 MLS/HR; Start 04/28/16 at 12: 00; Stop 05/28/16 at 11:59 Potassium Chloride/Sodium Chloride (Nss + 20meq KCl 1000ml) 1,000 ml @ 100 mls/ hr Q10H IV Last administered on 04/30/16t 03:03; Admin Dose 100 MLS/HR; Start at 09:00; Stop 05/26/16 at 05:06 Zolpidem Tartrate (Ambien Tab) 5 mg HSZ PRN PO; Start 04/26/16 at 05:15; Stop 05/26/16 at 05:14 Objective Vital Signs Date Time Temp Pulse Resp B/P Pulse Ox O2 Delivery O2 Flow Rate FiO2 04/30/16 07:39 36.8 66 16 110/62 94 Room Air 04/30/16 07:30 Room Air 04/30/16 00:05 36.9 63 15 133/63 96 Room Air 04/29/16 23:30 Room Air 04/29/16 16:00 99 Room Air 04/29/16 15:09 36.9 66 16 160/75 99 Room Air Physical Exam Comments: nad, aox2, eomi, perrl anicteric s1 s2 rrr, no murmurs appreciated ctab no w/r/r abd soft ,nt/nd +BS trace BLE edema cn 2-12 grossly intact Assessment and Plan 50 yo M with abdominal pain, n/v, BRBPR 1. abd pain/brbpr - non-bleeding ulcer with visible vessel s/p cautery - will require 3-day infusion of protonix followed by po protonix daily, to finish 04/30 - biopsies of duodenum and colon to be f/u outpatient with GI - will need repeat EGD in 6 weeks to re-assess ulcer - repeat colonoscopy in 3 years 2. hyperglycemia - a1c 5.4, reports no h/o DM - may stop glucose monitoring 3. KIM - 2/2 volume depletion + failure of autoregulation from ACEI - resolved 4. Electrolyte abnormalities - hyponatremia with hypokalemia - likely from decreased po intake - resolved
[2016-04-30 15:32] VITALS: BP 129/73; PULSE 69; TEMP 36.8; O2SAT 97
[2016-04-30 22:58] VITALS: BP 155/83; PULSE 68; TEMP 36.7; O2SAT 97
[2016-05-01 03:15] VITALS: BP 127/67; PULSE 67; TEMP 36.8; O2SAT 95
[2016-05-01 06:45] LABS: HEMATOCRIT 25.6 % (42-52); MEAN CELL VOLUME 95.9 fL (80-100); MEAN CORPUSCULAR HEMOGLOBIN 30.7 pg (25-34); MEAN PLATELET VOLUME 10.4 fL (7.4-10.4); PLATELET COUNT 308 K/uL (130-400); RED BLOOD COUNT 2.67 M/uL (4.7-6.1); WHITE BLOOD COUNT 9.33 K/uL (4.8-10.8)
[2016-05-01] MEDS ORDERED: PRT40 PO (07:32)
[2016-05-01] MEDS ORDERED: LSN20 PO (07:32)
[2016-05-01] MEDS ORDERED: FRRS300 PO (07:32)
[2016-05-01 07:33] VITALS: BP 148/89; PULSE 67; TEMP 36.6; O2SAT 97
--- NOTE | 2016-05-01 07:33 | Discharge Summary ---
Discharge Summary Date of Service May 01, 2016. Discharge Summary Admission Date: Apr 26, 2016 at 05:07 Discharge Date: May 01, 2016 Principal Diagnosis: UGI Immunizations: Have You Had Influenza Vaccine: No History of Tetanus Vaccine?: Unknown History of Pneumococcal: Unknown History of Hepatitis B Vaccine: No Procedures: CT ABD/PELV IMPRESSION: 1. No evidence of bowel obstruction. No evidence of free air 2. Normal appendix 3. No evidence of acute diverticulitis. 4. No renal, ureteral, or bladder calculi identified 5. Fluid-filled small bowel loops and air-fluid levels within the colon. An enteritis cannot be excluded. EGD Impression: - Normal esophagus. - Z-line regular, 36 cm from the incisors. - Gastritis. Biopsied. - One non-obstructing non-bleeding duodenal ulcer with a visible vessel. Injected. Treated with bipolar cautery. - Nodular mucosa at 2nd part of the duodenum and at 3rd part of the duodenum. Biopsied. Recommendation: - Perform a colonoscopy as previously scheduled. - Give Protonix (pantoprazole): initiate therapy with 80 mg IV bolus, then 8 mg/hr IV by continuous infusion for 3 days. The Protonix 40 mg per day. - Repeat the upper endoscopy in 6 weeks for surveillance. COLONOSCOPY Impression: - The examined portion of the ileum was normal. - Mild diverticulosis in the entire examined colon. 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 Biopsied. - Internal hemorrhoids. - The examination was otherwise normal. Recommendation: - Discharge patient to home (ambulatory). - Advance diet as tolerated today. - Await pathology results. - Repeat colonoscopy in 3 years for surveillance based on pathology results. Medication Reconciliation New Medications: Lisinopril (Lisinopril) 20 Mg Tab 20 MG PO DAILY for 30 Days Ferrous Sulfate (Ferrous Sulfate) 325 Mg Tab 325 MG PO QAM for 30 Days, #30 TAB Pantoprazole (Pantoprazole Sodium) 40 Mg Tab 40 MG PO QAM for 90 Days, #90 TAB Continued Medications: Allopurinol (Zyloprim) 300 Mg Tab 300 MG PO DAILY, TAB Multivitamin (Multivitamin) Tab 1 TAB PO DAILY, TAB Ondansetron Hcl (Zofran) 8 Mg Tab 8 MG PO Q8 PRN for Nausea, TAB Promethazine Hcl (Phenergan) 25 Mg Tab 25 MG PO TID PRN for Nausea, TAB Discontinued Medications: Lisinopril (Zestril) 30 Mg Tab 30 MG PO DAILY, TAB Hospital Course The patient is a 50-year-old male brought into the emergency department by EMS. He reports nausea, vomiting and diarrhea for 2 days, and has had 3-4 episodes of bright and dark red stools tonight. He's had 3 near falls at home, and was reported by EMS to have a systolic blood pressure in the 50s upon arrival. He reports some generalized abdominal discomfort. He denies any questionable food intake or liquid intake, recent travel, or sick exposures. PT had and abdominal CT as above. GI consulted. Patient did not receive any transfusion on this admission but did have a significant drop in Hb down to mid 8s and remained stable there. He had an EGD and Colonoscopy as above. Patient was given a continuous infusion of protonix for 3 days then started on po pantoprazole. Antihypertensives were held due to anemia with borderline BP. His BP has been well-controlled off lisinopril but there were a few readings that were >150 systolic. I will resume his lisinopril at a lowe rdose of 20mg daily and he will monitor his BP at home. He was instructed to take a full dose if BP was persistently elevated >150 systolic or stop it if BP low. ON day of discharge, patient had no dark stools or BRBPR, no n/v and was tolerating his diet. Vital Signs Date Time Temp Pulse Resp B/P Pulse Ox O2 Delivery O2 Flow Rate FiO2 05/01/16 07:35 Room Air 05/01/16 07:33 36.6 67 16 148/89 97 NAD, aox3 eomi, perrl, anicteric s1 s2 rrr, no murmurs appreciated ctab no w/r/r abd soft nt/nd +BS trace LE edema cn 2-12 grossly intact without facial drooping 50 yo M with abdominal pain, n/v, BRBPR 1. abd pain/brbpr - non-bleeding ulcer with visible vessel s/p cautery - off protonix drip, now po - biopsies of duodenum and colon to be f/u outpatient with GI - will need repeat EGD in 6 weeks to re-assess ulcer - repeat colonoscopy in 3 years 2. hyperglycemia - a1c 5.4, reports no h/o DM - may stop glucose monitoring 3. KIM - 2/2 volume depletion + failure of autoregulation from ACEI - resolved 4. Electrolyte abnormalities - hyponatremia with hypokalemia - likely from decreased po intake - resolved 5. HTN - mostly well-controlled off antihypertensives - will resume lisinopril only at 20 mg daily - patient advised to monitor his BP at home - - verbalized understanding Total Time Spent: Less than 30 minutes This includes examination of the patient, discharge planning, medication reconciliation, and communication with other providers. Discharge Instructions Please refer to the electronic Patient Visit Report (Discharge Instructions) for additional information. Additional Copies To Sidney Arthur M.D.
--- NOTE | 2016-05-01 07:33 | Discharge Instructions ---
Discharge Instructions Admission Reason for Admission: Dehydration, Enterocolitis Discharge Discharge Diagnosis / Problem: stable for home Discharge Goals Goal(s): Decrease discomfort, Improve disease control Activity Recommendations Activity Limitations: resume your previous activity . Current Hospital Diet Patient's current hospital diet: Low Fiber Diet, Regular Diet Discharge Diet Recommended Diet: Regular Diet, Low Fiber Diet Pending Studies Studies pending at discharge: no Laboratory Results Hemoglobin A1c Test 04/26/16 02:05 Range/Units Estimated Average Glucose 108 mg/dl Hemoglobin A1c 5.4 4.5-5.6 % Medical Emergencies . Who to Call and When: Medical Emergencies: If at any time you feel your situation is an emergency, please call 911 immediately. . Non-Emergent Contact Non-Emergency issues call your: Primary Care Provider, Associate Director . . "Provider Documentation" section prepared by Raven Gavin. VTE Core Measure Inpt VTE Proph given/why not?: SCD's
[2016-05-01] MEDS: NSS + 20MEQ KCL 1000ML 1,000 ML IV SCH (08:04)
[2016-05-01] MEDS ORDERED: PANTOprazole SOD 40 MG TAB PO SCH (09:00)
[2016-05-01] MEDS: FERROUS SULFATE 325 MG TAB PO SCH (09:12)
[2016-05-01] MEDS ORDERED: NURSING VERBAL MED ORDER ONE (10:45)
[2016-05-01 10:50] VITALS: BP 148/89; PULSE 67; TEMP 36.6; O2SAT 97
[2016-06-11] MEDS ORDERED: LECI1200 PO (11:41)
[2016-06-11] MEDS ORDERED: PANT40TA PO (11:41)
[2016-06-11] MEDS ORDERED: FERR1TAB13 PO (11:41)
[2016-06-11] MEDS ORDERED: POTA99TA PO (11:41)
[2016-06-11] MEDS ORDERED: LISI20TA3 PO (11:42)
== END 2016-05-01 12:00 | disposition home or self-care (01) | DRG 392 ==
LOC: ENRESERVTM → ENRESERVDT → EDBD 02:06 → C.EDB 02:12 → C.MSN 05:07
PROVIDERS: ADMIT Hospitalist; ATTEND Internal Medicine
PROC: 0DBN8ZX Excision of Sigmoid Colon, Via Natural or Artificial Opening Endoscopic, Diagnostic (ICD-10-PCS; 2016-04-28)
PROC: 0DB68ZX Excision of Stomach, Via Natural or Artificial Opening Endoscopic, Diagnostic (ICD-10-PCS; principal; 2016-04-28 09:30)
PROC: 0DB98ZX Excision of Duodenum, Via Natural or Artificial Opening Endoscopic, Diagnostic (ICD-10-PCS; 2016-04-28 09:30)
DX: K29.70 Gastritis, unspecified, without bleeding (principal); D62 Acute posthemorrhagic anemia; K62.5 Hemorrhage of anus and rectum; N17.9 Acute kidney failure, unspecified; E87.1 Hypo-osmolality and hyponatremia; K52.9 Noninfective gastroenteritis and colitis, unspecified; K64.8 Other hemorrhoids; K57.30 Diverticulosis of large intestine without perforation or abscess without bleeding; M10.9 Gout, unspecified; E11.65 Type 2 diabetes mellitus with hyperglycemia; I10 Essential (primary) hypertension; E87.8 Other disorders of electrolyte and fluid balance, not elsewhere classified; K26.9 Duodenal ulcer, unspecified as acute or chronic, without hemorrhage or perforation

== ENCOUNTER → 2016-06-12 | Day surgery (SDC) | payer BC ==
[2016-06-11 11:44] VITALS: BMI 32.0
[~2016-06-12] VITALS: Ht 172.7 cm; Wt 95.5 kg
[~2016-06-12] MED LIST changes: +ATROPINE SULFATE 0.1 MG/ML 5ML SYR IV PRN; +EpHEDrine SULFATE INJ 50 MG/ML AMP IV PRN; -FRRS300 PO; +LIDOCAINE HCL 2% 2 ML VIAL (20MG/ML) ONE; -LISI1TAB3 PO; -LSN20 PO; -ONDA8TAB6 PO; -PROM25TA9 PO; +PROPOFOL IV EMULSION 10 MG/ML 20 ML VIAL IV ONE; -PRT40 PO; +SODIUM CHLORIDE 0.9% 500ML 500 ML IV ONE
[2016-06-12 09:11] VITALS: Ht 172.7 cm; Wt 95.5 kg
--- NOTE | 2016-06-12 10:00 | Endo History and Physical ---
History & Physical Date of Service: Jun 12, 2016. Chief Complaint: HX GASTRIC ULCER Referring Physician: History of Present Illness 51 yo f/u of large duodenal ulcer Past Surgical History Hx Cardiac Surgery: No Hx Internal Defibrillator: No Hx Pacemaker: No Hx Abdominal Surgery: Yes (EXPL LAP, HERNIA REPAIR) Hx of Implantable Prosthesis: No Hx Post-Op Nausea and Vomiting: No Hx Cancer Surgery: No Hx Thoracic Surgery: No Hx Orthopedic: No Hx Urinary Tract Surgery: No Family History None Social History Smoking Status: Never Smoker Hx Substance Use: No Hx Alcohol Use: Yes (5-6 BEERS/WEEK) Allergies Coded Allergies: Penicillins (Verified Allergy, Mild, HAPPENED A CHILD - UNKNOWN REACTION, 06/11/16) Current Medications Reported Home Medications Medications Dose Route/Sig Max Daily Dose Days Date Category Prinivil (Lisinopril) 20 Mg Tab 20 Mg PO QAM PRN 06/11/16 Reported Lecithin 1,200 Mg Cap 1 Tab PO QAM 06/11/16 Reported Potassium 99 Mg Tab 1 Tab PO QAM 06/11/16 Reported Kp Ferrous Sulfate (Ferrous Sulfate) 325 Mg Tab 1 Tab PO QAM 06/11/16 Reported Protonix (Pantoprazole Sodium) 40 Mg Tab 40 Mg PO QAM 06/11/16 Reported Multivitamin (Multivitamins) Tab 1 Tab PO QAM 04/26/16 Reported Zyloprim (Allopurinol) 300 Mg Tab 300 Mg PO QAM 04/26/16 Reported Vital Signs Weight (Kilograms): 95.45 Height (Feet): 5 Height (Inches): 8 Date Time Temp Pulse Resp B/P Pulse Ox O2 Delivery O2 Flow Rate FiO2 06/12/16 09:11 74 20 128/71 96 Room Air Physical Exam General Appearance: WD/WN, no apparent distress Respiratory/Chest: Respiratory effort: no dyspnea Auscultation: breath sounds normal, CTA except as noted, no wheezing Cardiovascular: Apical Impulse: not displaced Heart Auscultation: RRR, normal S1, normal S2 Abdomen: Bowel Sounds: normal Inspection & Palpation: soft, non-distended Assessment and Plan 51 yo presenting for evaluation of duodenal ulcer
--- NOTE | 2016-06-12 10:17 | Discharge Instructions ---
Endoscopy Patient Instructions Date / Procedure(s) Performed Jun 12, 2016. Colonoscopy, EGD Allergy Information Coded Allergies: Penicillins (Verified Allergy, Mild, HAPPENED A CHILD - UNKNOWN REACTION, 06/11/16) Discharge Date / Findings Jun 12, 2016. healed ulcer Non-urgent Endoscopic ultrasound needs to be scheduled as there was a small submucosal nodule (lesion likely within the esophageal wall) Once daily prilosec 20 mg daily Avoidance of NSAIDs Provider Instructions Activity Restrictions - No exercising or heavy lifting for 24 hours. - Do not drink alcohol the day of the procedure. - Do not drive a car or operate machinery until the day after the procedure. - Do not make any important decisions or sign important papers in 24 hours after the procedure. Following Day: - Return to full activity which may include returning to work/school. Diet Start your diet with liquids and light foods (jello, soup, juice, toast). Then eat your usual diet if not nauseated. Treatment For Common After Affects For mild abdominal pain, bloating, or excessive gas: - Rest - Eat lightly - Lie on right side Follow-Up Information Follow-up with as scheduled Anesthesia Information What You Should Know You have had a procedure that required some medicine to reduce anxiety and discomfort. This treatment is called moderate sedation. After receiving the treatment, you may be sleepy, but you will be able to breathe on your own. The effects of the treatment may last for several hours. Follow these instructions along with Activity/Diet recommendations noted above: * Do NOT do anything where dizziness or clumsiness would be dangerous. * Rest quietly at home today, then you can be up and about tomorrow. * Have a responsible person stay with you the rest of today. * You may have had an I.V. today. If so, you may take the dressing off later today. Recommendations Call your doctor if: * Trouble breathing * Continuous vomiting for more than 24 hours * Temperature above 101 degrees * Severe abdominal pain or bloating * Pain not relieved by pain medicine ordered * There is increased drainage or redness from any incision * A large amount of rectal bleeding greater than 2-3 tablespoons. (If you had a polyp/s removed or have hemorrhoids, a small amount of blood - from the rectum is to be expected.) * You have any unanswered questions or concerns. IN THE EVENT OF A SERIOUS EMERGENCY, GO TO THE NEAREST EMERGENCY ROOM Your discharge instructions were prepared by provider Jaun Almendarez. Patient Instructions Signature Page Jessee Garciaarmaan Patient (or Guardian) Signature/Date: I have read and understand the instructions given to me by my caregivers. Caregiver/RN/Doctor Signature/Date: The above-named patient and/or guardian has received patient instructions on this date. + Original Patient Signature Page (only) stays with chart. Please make copy for patient.
--- NOTE | 2016-06-12 10:17 | GI REPORT ---
Procedure Date: 06/12/2016 9:58 AM Procedure: Upper GI endoscopy Indications: Follow-up of acute duodenal ulcer Medicines: General Anesthesia Complications: No immediate complications. Estimated blood loss: None. Estimated Blood Loss: Estimated blood loss: none. Procedure: Pre-Anesthesia Assessment: - Pre-Anesthesia Assessment: - Prior to the procedure, a History and Physical was performed, and patient medications, allergies and sensitivities were reviewed. The patient's tolerance of previous anesthesia was reviewed. Please see [employer] for complete details. - The risks and benefits of the procedure and the sedation options and risks were discussed with the patient. All questions were answered and informed consent was obtained. - Patient identification and proposed procedure were verified prior to the procedure by the physician and the nurse. The procedure was verified in the pre-procedure area in the procedure room. After obtaining informed consent, the endoscope was passed carefully and meticuously under direct vision and only advanced when the lumen was clearly identified, C02 insuflation was utilized throughout the entirity of the procedure. Throughout the procedure, the patient's blood pressure, pulse, and oxygen saturations were monitored continuously. After obtaining informed consent, the endoscope was passed under direct vision. Throughout the procedure, the patient's blood pressure, pulse, and oxygen saturations were monitored continuously. The scope was introduced through the mouth, and advanced to the second part of duodenum. The upper GI endoscopy was accomplished without difficulty. The patient tolerated the procedure well. Findings: A single 5 mm submucosal nodule was found in the lower third of the esophagus. The entire examined stomach was normal. The examined duodenum was normal. Impression: - Submucosal nodule found in the esophagus. - Normal stomach. - Normal examined duodenum. - No specimens collected. Recommendation: - Discharge patient to home (with escort). - Return to referring physician as previously scheduled. - Use Prilosec (omeprazole) 20 mg PO daily. - Perform an upper endoscopic ultrasound (UEUS) at appointment to be scheduled for the submucosal nodule. Jaun Almendarez MD 06/12/2016 10:15:56 AM This report has been signed electronically. Note Initiated On: 06/12/2016 9:58 AM I attest to the content of the Intraoperative Record and orders documented therein, exceptions below
--- NOTE | 2016-06-12 10:25 | Anesthesiology Progress Note ---
Anesthesia Post Op Note Date & Time Jun 12, 2016 at 10:24 Vital Signs Pain Intensity: 0 Vital Signs Past 12 Hours Date Time Temp Pulse Resp B/P Pulse Ox O2 Delivery O2 Flow Rate FiO2 06/12/16 10:17 73 20 136/73 96 Room Air 06/12/16 09:11 74 20 128/71 96 Room Air Notes Mental Status: alert / awake / arousable, participated in evaluation Pt Amnestic to Procedure: Yes Nausea / Vomiting: adequately controlled Pain: adequately controlled Airway Patency, RR, SpO2: stable & adequate BP & HR: stable & adequate Hydration State: stable & adequate Anesthetic Complications: no major complications apparent
[2016-06-12 10:45] VITALS: BP 139/72; PULSE 73; O2SAT 96
== END | disposition home or self-care (01) ==
LOC: C.GI 08:55
PROVIDERS: ATTEND Internal Medicine
DX: K26.9 Duodenal ulcer, unspecified as acute or chronic, without hemorrhage or perforation (principal); K22.8 Other specified diseases of esophagus; Z98.890 Other specified postprocedural states; Z88.0 Allergy status to penicillin

== ENCOUNTER → 2016-08-03 | Outpatient (CLI) | payer BC ==
[~2016-08-03] MED LIST changes: -ATROPINE SULFATE 0.1 MG/ML 5ML SYR IV PRN; -EpHEDrine SULFATE INJ 50 MG/ML AMP IV PRN; -LIDOCAINE HCL 2% 2 ML VIAL (20MG/ML) ONE; -PROPOFOL IV EMULSION 10 MG/ML 20 ML VIAL IV ONE; -SODIUM CHLORIDE 0.9% 500ML 500 ML IV ONE
--- NOTE | 2016-08-03 19:39 | DIAGNOSTIC IMAGING REPORT ---
RIGHT TIBIA/FIBULA 2 VIEWS ROUTINE, RIGHT KNEE 3 VIEWS, RIGHT FOOT MIN 3 VIEWS ROUTINE CLINICAL HISTORY: Right knee, lower leg, and foot pain. COMPARISON STUDY: Right knee 11/24/2015. FINDINGS: Chondrocalcinosis within the knee. No dislocation. Mild soft tissue swelling within the right lower leg, knee, and foot. Small knee effusion. Fracture at the head of the proximal phalanx of the fifth toe. This is likely old. IMPRESSION: 1. Fracture at the head of the proximal phalanx of the fifth toe. This is likely old. Clinical correlation recommended. 2. Otherwise, no acute fractures within the right knee or right lower leg. 3. Small knee effusion. 4. Diffuse soft tissue swelling within the right lower leg and foot. Electronically signed by: Bakari Fonseca M.D. 08/03/2016 7:38 PM Dictated Date/Time: 08/03/2016 7:31 PM
== END | disposition home or self-care (01) ==
LOC: C.RAD 18:44
PROVIDERS: ATTEND Physician Assistant Medical
DX: S89.91XA Unspecified injury of right lower leg, initial encounter (principal); S92.511A Displaced fracture of proximal phalanx of right lesser toe(s), initial encounter for closed fracture; X58.XXXA Exposure to other specified factors, initial encounter; M79.89 Other specified soft tissue disorders

== ENCOUNTER → 2016-08-05 | Outpatient (CLI) | payer BC ==
--- NOTE | 2016-08-05 11:25 | DIAGNOSTIC IMAGING REPORT ---
RIGHT LOWER EXTREMITY VENOUS DOPPLER CLINICAL HISTORY: Right lower leg pain and swelling. COMPARISON STUDY: No previous studies for comparison. TECHNIQUE: Sonography of the deep venous system of the right lower extremity was performed. Compression and augmentation were evaluated. FINDINGS: The right common femoral and superficial femoral veins are patent. Note is made of deep venous thrombus within the right popliteal and peroneal veins as well as one of two paired anterior tibial and posterior tibial veins.. IMPRESSION: Deep venous thrombus within the right popliteal, posterior tibial, anterior tibial and peroneal veins. Electronically signed by: Demario Leon M.D. 08/05/2016 11:24 AM Dictated Date/Time: 08/05/2016 11:22 AM
== END | disposition home or self-care (01) ==
LOC: C.ULTR 10:37
PROVIDERS: ATTEND Physician Assistant Medical
DX: I82.4Z1 Acute embolism and thrombosis of unspecified deep veins of right distal lower extremity (principal)

== ENCOUNTER → 2016-08-18 | Outpatient (CLI) | payer BC ==
[2016-08-18 12:29] LABS: MEAN CORPUSCULAR HGB CONC 30.4 g/dl (32-36)
[2016-08-18 12:42] LABS: HEMATOCRIT 42.4 % (42-52); MEAN CELL VOLUME 79.5 fL (80-100); MEAN CORPUSCULAR HEMOGLOBIN 24.2 pg (25-34); RED BLOOD COUNT 5.33 M/uL (4.7-6.1); WHITE BLOOD COUNT 7.69 K/uL (4.8-10.8)
[2016-08-18 12:50] LABS: ESTIMATED AVERAGE GLUCOSE 123 mg/dl; HA1C FLAG Normal (Normal)
[2016-08-18 13:05] LABS: BLOOD UREA NITROGEN 8 mg/dl (7-18); BUN/CREATININE RATIO 10.2 (10-20); CARBON DIOXIDE 27 mmol/L (21-32); CHLORIDE 94 mmol/L (98-107); GLUCOSE 88 mg/dl (70-99); POTASSIUM 3.9 mmol/L (3.5-5.1); SODIUM 133 mmol/L (136-145)
[2016-08-18 13:08] LABS: CALCIUM 9.2 mg/dl (8.5-10.1)
[2016-08-18 13:48] LABS: ANISOCYTOSIS PRESENT; BASO % 0.1 %; BASO ABS # 0.01 K/uL (0-0.2); COMPLETE YES; EOS % 0.8 %; IG% 0.4 %; LYMPH % 14.4 %; LYMPH ABS # 1.11 K/uL (1.2-3.4); NEUT % 70.3 %; PLATELET COUNT 131 K/uL (130-400); PLT ESTIMATE NORMAL
[2016-08-18 13:51] LABS: ALT/SGPT 190 U/L (12-78); BLOOD UREA NITROGEN 8 mg/dl (7-18); BUN/CREATININE RATIO 9.3 (10-20); CARBON DIOXIDE 28 mmol/L (21-32); CHLORIDE 94 mmol/L (98-107); CHOLESTEROL 123 mg/dl (0-200); CREATININE 0.86 mg/dl (0.60-1.40); GLUCOSE 86 mg/dl (70-99); SODIUM 132 mmol/L (136-145); TRIGLYCERIDES 55 mg/dl (0-150); URIC ACID 3.1 mg/dl (2.6-7.2); VERY LOW DENSITY LIPOPROT CALC 11 mg/dl
[2016-08-18 13:56] LABS: CALCIUM 9.3 mg/dl (8.5-10.1)
[2016-08-18 14:02] LABS: ALB/GLOB RATIO 0.7 (0.9-2); ALKALINE PHOSPHATASE 209 U/L (45-117); AST/SGOT 243 U/L (15-37); CHOLESTEROL/HDL RATIO 1.6; FERRITIN 179.4 ng/ml (8.0-388.0); HDL CHOLESTEROL 79 mg/dl; LDL CHOLESTEROL CALCULATED 33 mg/dl; TOTAL IRON BINDING CAPACITY 369 mcg/dl (250-450)
== END | disposition home or self-care (01) ==
LOC: C.LABBFT 10:24
PROVIDERS: ATTEND Internal Medicine
DX: Z01.812 Encounter for preprocedural laboratory examination (principal); R11.0 Nausea; D64.9 Anemia, unspecified; E78.5 Hyperlipidemia, unspecified; R73.01 Impaired fasting glucose; M10.9 Gout, unspecified

== ENCOUNTER → 2016-09-17 | Outpatient (CLI) | payer BC ==
[2016-09-17 12:49] LABS: ALT/SGPT 111 U/L (12-78); AST/SGOT 62 U/L (15-37); BLOOD UREA NITROGEN 5 mg/dl (7-18); BUN/CREATININE RATIO 7.8 (10-20); CALCIUM 8.8 mg/dl (8.5-10.1); CARBON DIOXIDE 32 mmol/L (21-32); CHLORIDE 108 mmol/L (98-107); GLUCOSE 98 mg/dl (70-99); SODIUM 142 mmol/L (136-145)
[2016-09-17 12:51] LABS: ALB/GLOB RATIO 0.7 (0.9-2); ALKALINE PHOSPHATASE 158 U/L (45-117)
== END | disposition home or self-care (01) ==
LOC: C.LABBFT 07:57
PROVIDERS: ATTEND Internal Medicine
DX: D64.9 Anemia, unspecified (principal); K26.9 Duodenal ulcer, unspecified as acute or chronic, without hemorrhage or perforation; M10.9 Gout, unspecified

== ENCOUNTER → 2016-12-25 | Outpatient (CLI) | payer BC ==
--- NOTE | 2016-12-25 14:49 | DIAGNOSTIC IMAGING REPORT ---
MRI OF THE LEFT HIP WITHOUT IV CONTRAST CLINICAL HISTORY: Left hip pain. Avascular necrosis. COMPARISON STUDY: Radiographs of the left hip dated 12/18/2016. Pelvic CT dated 04/26/2016. TECHNIQUE: MRI of the left hip is performed utilizing various T1 and T2-weighted sequences in the axial and coronal planes. IV contrast was not administered for this examination. FINDINGS: There is significant marrow edema identified within the left femoral head and neck. There is no convincing MRI evidence of fracture. There is a large serpiginous band of sclerosis identified within the femoral head with mild subchondral collapse seen superiorly consistent with avascular necrosis. Mild change of avascular necrosis is also seen in the right hip. No significant marrow edema is present in the right hip. There is a moderate left joint effusion. No right joint effusion is identified. The bony pelvis appears intact. No significant marrow edema is identified within the left acetabulum. There is no evidence of greater trochanteric bursitis. The origin of the hamstrings tendons is intact. The bladder, prostate, and seminal vesicles are normal as visualized. No free fluid is seen in the pelvis. There is no pelvic sidewall or inguinal lymphadenopathy. The musculature of the pelvis and upper thighs is normal and symmetric. No intramuscular edema is seen. IMPRESSION: 1. There is marked marrow edema present within the left femoral head and neck with evidence of avascular necrosis. There is mild subchondral collapse identified along the superior surface of the femoral head. 2. Findings of mild avascular necrosis are also present within the right femur. No significant marrow edema is seen. 3. There is a large left hip joint effusion. Dictated: 12/25/2016 2:36 PM Transcribed: 12/25/2016 2:48 PM [email or web address] Electronically signed by: Arun Faria M.D. 12/25/2016 2:58 PM Dictated Date/Time: 12/25/2016 2:36 PM
== END | disposition home or self-care (01) ==
LOC: C.MRI 13:45
PROVIDERS: ATTEND Orthopaedic Surgery
DX: M87.051 Idiopathic aseptic necrosis of right femur (principal)

== ENCOUNTER → 2017-03-27 | Day surgery (SDC) | payer BC ==
[2017-03-12 11:18] VITALS: Ht 175.3 cm; Wt 95.5 kg
[2017-03-25 16:37] LABS: BASO % 0.4 %; BASO ABS # 0.04 K/uL (0-0.2); EOS % 0.8 %; EOS ABS # 0.07 K/uL (0-0.5); HEMATOCRIT 38.1 % (42-52); HEMOGLOBIN 12.2 g/dL (14.0-18.0); IG# 0.02 K/uL (0.00-0.02); LYMPH % 22.7 %; LYMPH ABS # 2.04 K/uL (1.2-3.4); MEAN CELL VOLUME 96.9 fL (80-100); MEAN PLATELET VOLUME 11.2 fL (7.4-10.4); MONO % 11.5 %; MONO ABS # 1.03 K/uL (0.11-0.59); NEUT % 64.4 %; NEUT ABS # 5.78 K/uL (1.4-6.5); PLATELET COUNT 235 K/uL (130-400); RED CELL DISTRIBUTION WIDTH CV 18.5 % (11.5-14.5); WHITE BLOOD COUNT 8.98 K/uL (4.8-10.8)
[2017-03-25 16:57] LABS: CALCIUM 9.5 mg/dl (8.5-10.1); CREATININE 0.92 mg/dl (0.60-1.40); POTASSIUM 3.5 mmol/L (3.5-5.1)
[~2017-03-27] VITALS: Ht 175.3 cm; Wt 95.5 kg
[~2017-03-27] MED LIST changes: +ATROPINE SULFATE 0.1 MG/ML 5ML SYR IV PRN; +EpHEDrine SULFATE INJ 50 MG/ML AMP IV PRN; +FENTANYL CITRATE INJ 50 MCG/1 ML 2 ML VIAL IV PRN; +FENTANYL CITRATE INJ 50 MCG/1 ML 2 ML VIAL ONE; -FERR1TAB13 PO; +LACTATED RINGER'S 1000ML IV SCH; +LIDOCAINE HCL 2% 2 ML VIAL (20MG/ML) ONE; -LISI20TA3 PO; +LSN40 PO; +MIDAZOLAM HCL 1 MG/ML 2ML VIAL ONE; +ONDANSETRON INJ 2 MG/ML 2 ML VIAL IV PRN; +PROPOFOL IV EMULSION 10 MG/ML 20 ML VIAL IV ONE
[2017-03-27 08:22] VITALS: BP 152/81; PULSE 65; TEMP 36.9; O2SAT 97
--- NOTE | 2017-03-27 09:02 | Endo History and Physical ---
History & Physical Date of Service: Mar 27, 2017. Chief Complaint: Abnormal upper endoscopy Referring Physician: History of Present Illness Patient was found to have a submucosal lesion in the esophagus during an upper endoscopy about 9 months ago. He presents for surveillance and endoscopic ultrasound for further assessment. Past Surgical History Hx Cardiac Surgery: No Hx Internal Defibrillator: No Hx Pacemaker: No Hx Abdominal Surgery: Yes (EXPL LAP, HERNIA REPAIR) Hx Post-Op Nausea and Vomiting: No Hx Cancer Surgery: No Hx Thoracic Surgery: No Hx Orthopedic: No Hx Urinary Tract Surgery: No Social History Smoking Status: Never Smoker Hx Substance Use: No Hx Alcohol Use: Yes (SOCIALLY) Allergies Coded Allergies: Apixaban (Verified Allergy, Severe, NAUSEA, SHAKES, CHILLS, 03/27/17) Penicillins (Verified Allergy, Mild, HAPPENED A CHILD - UNKNOWN REACTION, 03/27/17) Current Medications Reported Home Medications Medications Dose Route/Sig Max Daily Dose Days Date Category Lisinopril 40 Mg Tab 40 Mg PO QAM 03/12/17 Reported Lecithin 1,200 Mg Cap 1,200 Mg PO QAM 06/11/16 Reported Potassium 99 Mg Tab 1 Tab PO QAM 06/11/16 Reported Protonix (Pantoprazole Sodium) 40 Mg Tab 40 Mg PO QAM 06/11/16 Reported Multivitamin (Multivitamins) Tab 1 Tab PO QAM 04/26/16 Reported Zyloprim (Allopurinol) 300 Mg Tab 300 Mg PO QAM 04/26/16 Reported Vital Signs Weight (Kilograms): 95.45 Height (Feet): 5 Height (Inches): 9 Date Time Temp Pulse Resp B/P (MAP) Pulse Ox O2 Delivery O2 Flow Rate FiO2 03/27/17 08:22 36.9 65 18 152/81 (104) 97 Room Air Physical Exam General Appearance: no apparent distress Respiratory/Chest: Auscultation: breath sounds normal Cardiovascular: Heart Auscultation: RRR Assessment and Plan Upper endoscopy and endoscopic ultrasound for evaluation of a submucosal esophageal lesion. We have discussed the risks to include, infection, perforation, pain and need for follow-up studies.
--- NOTE | 2017-03-27 09:43 | GI REPORT ---
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 Estimated blood loss: Minimal. Estimated Blood Loss: Estimated blood loss was minimal. Procedure: Pre-Anesthesia Assessment: - Prior to the procedure, a History and Physical was performed, and patient medications, allergies and sensitivities were reviewed. The patient's tolerance of previous anesthesia was reviewed. - The risks and benefits of the procedure and the sedation options and risks were discussed with the patient. All questions were answered and informed consent was obtained. - Patient identification and proposed procedure were verified prior to the procedure by the physician, the nurse and the almond blancher. The procedure was verified in the procedure room. - Pre-procedure physical examination revealed no contraindications to sedation. - ASA Grade Assessment: II - A patient with mild systemic disease. - After reviewing the risks and benefits, the patient was deemed in satisfactory condition to undergo the procedure. - The anesthesia plan was to use monitored anesthesia care (MAC). - Immediately prior to administration of medications, the patient was re-assessed for adequacy to receive sedatives. - The heart rate, respiratory rate, oxygen saturations, blood pressure, adequacy of pulmonary ventilation, and response to care were monitored throughout the procedure. - The physical status of the patient was re-assessed after the procedure. After obtaining informed consent, the endoscope was passed under direct vision. Throughout the procedure, the patient's blood pressure, pulse, and oxygen saturations were monitored continuously. The scope was introduced through the mouth, and advanced to the third part of duodenum. The upper GI endoscopy was accomplished without difficulty. The patient tolerated the procedure well. Findings: The upper third of the esophagus and middle third of the esophagus were normal. A medium-sized (10 to 12 mm), submucosal mass with no bleeding and no stigmata of recent bleeding was found at the gastroesophageal junction, 38 cm from the incisors. The mass was non-obstructing and not circumferential. Biopsies were taken with a cold forceps for histology. Estimated blood loss was minimal. The entire examined stomach was normal. The examined duodenum was normal. Impression: - Normal upper third of esophagus and middle third of esophagus. 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 Biopsied. - Normal stomach. - Normal examined duodenum. Recommendation: - Perform an upper endoscopic ultrasound (UEUS) today. MartLacey Doss, 03/27/2017 9:42:57 AM This report has been signed electronically. Note Initiated On: 03/27/2017 9:17 AM I attest to the content of the Intraoperative Record and orders documented therein, exceptions below
--- NOTE | 2017-03-27 09:56 | Discharge Instructions ---
Endoscopy Patient Instructions Date / Procedure(s) Performed Mar 27, 2017. EGD, Other (endoscopic ultrasound) Allergy Information Coded Allergies: Apixaban (Verified Allergy, Severe, NAUSEA, SHAKES, CHILLS, 03/27/17) Penicillins (Verified Allergy, Mild, HAPPENED A CHILD - UNKNOWN REACTION, 03/27/17) Discharge Date / Findings Mar 27, 2017. 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 Medication Instructions Reported Home Medications Medications Dose Route/Sig Max Daily Dose Days Date Category Lisinopril 40 Mg Tab 40 Mg PO QAM 03/12/17 Reported Lecithin 1,200 Mg Cap 1,200 Mg PO QAM 06/11/16 Reported Potassium 99 Mg Tab 1 Tab PO QAM 06/11/16 Reported Protonix (Pantoprazole Sodium) 40 Mg Tab 40 Mg PO QAM 06/11/16 Reported Multivitamin (Multivitamins) Tab 1 Tab PO QAM 04/26/16 Reported Zyloprim (Allopurinol) 300 Mg Tab 300 Mg PO QAM 04/26/16 Reported Provider Instructions Activity Restrictions - No exercising or heavy lifting for 24 hours. - Do not drink alcohol the day of the procedure. - Do not drive a car or operate machinery until the day after the procedure. - Do not make any important decisions or sign important papers in 24 hours after the procedure. Following Day: - Return to full activity which may include returning to work/school. Diet Start your diet with liquids and light foods (jello, soup, juice, toast). Then eat your usual diet if not nauseated. Treatment For Common After Affects For mild abdominal pain, bloating, or excessive gas: - Rest - Eat lightly - Lie on right side Follow-Up Information Repeat study in 2 years for surveillance Anesthesia Information What You Should Know You have had a procedure that required some medicine to reduce anxiety and discomfort. This treatment is called moderate sedation. After receiving the treatment, you may be sleepy, but you will be able to breathe on your own. The effects of the treatment may last for several hours. Follow these instructions along with Activity/Diet recommendations noted above: * Do NOT do anything where dizziness or clumsiness would be dangerous. * Rest quietly at home today, then you can be up and about tomorrow. * Have a responsible person stay with you the rest of today. * You may have had an I.V. today. If so, you may take the dressing off later today. Recommendations Call your doctor if: * Trouble breathing * Continuous vomiting for more than 24 hours * Temperature above 101 degrees * Severe abdominal pain or bloating * Pain not relieved by pain medicine ordered * There is increased drainage or redness from any incision * A large amount of rectal bleeding greater than 2-3 tablespoons. (If you had a polyp/s removed or have hemorrhoids, a small amount of blood - from the rectum is to be expected.) * You have any unanswered questions or concerns. IN THE EVENT OF A SERIOUS EMERGENCY, GO TO THE NEAREST EMERGENCY ROOM Your discharge instructions were prepared by provider Maryjane Haque. Patient Instructions Signature Page Jessee Childress Patient (or Guardian) Signature/Date: I have read and understand the instructions given to me by my caregivers. Caregiver/RN/Doctor Signature/Date: The above-named patient and/or guardian has received patient instructions on this date. + Original Patient Signature Page (only) stays with chart. Please make copy for patient.
--- NOTE | 2017-03-27 09:57 | [facility] Post Operative Brief Note ---
Immediate Operative Summary Operative Date Mar 27, 2017. 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 Maryjane Haque Quirk Sander Surgeon(s) none Estimated Blood Loss 0 cc Findings Consistent with Post-Op Diagnosis Specimens All specimens handled by endoscopy staff Drains None Anesthesia Type MAC Complication(s) none Disposition Disposition: Recovery Room / PACU
[2017-03-27 10:10] VITALS: BP 118/63; PULSE 69; TEMP 36.5; O2SAT 97
--- NOTE | 2017-03-27 10:11 | Anesthesiology Progress Note ---
Anesthesia Post Op Note Date & Time Mar 27, 2017 at 10:11 Vital Signs Pain Intensity: 0 Vital Signs Past 12 Hours Date Time Temp Pulse Resp B/P (MAP) Pulse Ox O2 Delivery O2 Flow Rate FiO2 03/27/17 08:22 36.9 65 18 152/81 (104) 97 Room Air Notes Mental Status: alert / awake / arousable, participated in evaluation Pt Amnestic to Procedure: Yes Nausea / Vomiting: adequately controlled Pain: adequately controlled Airway Patency, RR, SpO2: stable & adequate BP & HR: stable & adequate Hydration State: stable & adequate Anesthetic Complications: no major complications apparent
--- NOTE | 2017-03-27 10:16 | GI REPORT ---
Procedure Date: 03/27/2017 9:16 AM Procedure: Upper EUS Indications: Esophageal mucosal mass/polyp found on endoscopy Medicines: Monitored Anesthesia Care Complications: No immediate complications. Estimated blood loss: Minimal. Estimated Blood Loss: Estimated blood loss was minimal. Procedure: Pre-Anesthesia Assessment: - Prior to the procedure, a History and Physical was performed, and patient medications, allergies and sensitivities were reviewed. The patient's tolerance of previous anesthesia was reviewed. - The risks and benefits of the procedure and the sedation options and risks were discussed with the patient. All questions were answered and informed consent was obtained. - Patient identification and proposed procedure were verified prior to the procedure by the physician, the nurse and the host and hostess. The procedure was verified in the procedure room. - Pre-procedure physical examination revealed no contraindications to sedation. - ASA Grade Assessment: II - A patient with mild systemic disease. - The anesthesia plan was to use monitored anesthesia care (MAC). - Immediately prior to administration of medications, the patient was re-assessed for adequacy to receive sedatives. - The heart rate, respiratory rate, oxygen saturations, blood pressure, adequacy of pulmonary ventilation, and response to care were monitored throughout the procedure. - The physical status of the patient was re-assessed after the procedure. After obtaining informed consent, the endoscope was passed under direct vision. Throughout the procedure, the patient's blood pressure, pulse, and oxygen saturations were monitored continuously. The Scope was introduced through the mouth, and advanced to the second part of duodenum. The scope was introduced through the mouth, and advanced to the second part of duodenum. The upper EUS was accomplished without difficulty. The patient tolerated the procedure well. Findings: Endosonographic Finding : There was no sign of significant endosonographic abnormality in the ampulla. No masses were identified. There was no sign of significant endosonographic abnormality in the common bile duct. The maximum diameter of the duct was 3 mm. No stones, no biliary sludge and ducts of normal caliber were identified. Pancreatic parenchymal abnormalities were noted in the entire pancreas. These consisted of lobularity without honeycombing. The PD was 4 mm in the head and 1.7 mm in the body. No lymphadenopathy seen. There was no sign of significant endosonographic abnormality in the left adrenal gland. No adrenal gland enlargement was identified. An oval intramural (subepithelial) lesion was found in the gastroesophageal junction. It was encountered at 38 cm from the incisors. The lesion was hypoechoic. Sonographically, the origin appeared to be within the intramural wall, but the wall layer could not be determined. The mass measured up to 9 x 6 mm. The endosonographic borders were well-defined. There was no sign of significant endosonographic abnormality in the left lobe of the liver. Homogeneous parenchyma and no focal pathology were identified. Impression: - There was no sign of significant pathology in the ampulla. - There was no sign of significant pathology in the common bile duct. - Pancreatic parenchymal abnormalities consisting of lobularity were noted in the entire pancreas. - Endosonographic images of the left adrenal gland were unremarkable. - An 9 x 6 mm intramural (subepithelial) lesion was found in the gastroesophageal junction. 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 - No specimens collected. Recommendation: - Discharge patient to home (ambulatory). - Advance diet as tolerated today. - Repeat the upper endoscopic ultrasound in 2 years for surveillance. If unchanged at the next exam then no further follow-up would be needed. Maryjane Haque D.O. Maryjane Haque, 03/27/2017 10:15:59 AM This report has been signed electronically. Note Initiated On: 03/27/2017 9:16 AM I attest to the content of the Intraoperative Record and orders documented therein, exceptions below
[2017-03-27 10:40] VITALS: BP 113/58; PULSE 65; TEMP 36.4; O2SAT 97
== END | disposition home or self-care (01) ==
LOC: C.ACU 07:47
PROVIDERS: ATTEND Internal Medicine Gastroenterology
DX: Z09 Encounter for follow-up examination after completed treatment for conditions other than malignant neoplasm (principal); D13.0 Benign neoplasm of esophagus; I10 Essential (primary) hypertension; M19.90 Unspecified osteoarthritis, unspecified site; Z86.718 Personal history of other venous thrombosis and embolism; E66.9 Obesity, unspecified; F17.200 Nicotine dependence, unspecified, uncomplicated; Z88.0 Allergy status to penicillin

== ENCOUNTER 2024-06-17 13:39 | Observation (INO) ==
[2024-06-17 14:26] LABS: Hematocrit (blood only) 35.6 % (42.0-52.0); Hemoglobin 11.3 g/dl (14.0-18.0); Mean Corpuscular Hemoglobin 27.4 pg (25.0-34.0); Mean Corpuscular Hgb Conc 31.7 g/dL (32.0-36.0); Mean Corpuscular Volume 86.4 fL (80.0-100.0); Platelet Count 157 K/uL (130-400); RDW Coefficient of Variation 21.9 % (11.5-14.5); RDW Standard Deviation 68.4 fL (36.4-46.3); Red Blood Count 4.12 M/uL (4.70-6.10)
[2024-06-17 14:40] LABS: Anisocytosis Present; Basophils # (auto) 0.05 K/uL (0.00-0.20); Basophils % (auto) 0.2 %; Eosinophils # (auto) 0.03 K/uL (0.00-0.50); Eosinophils % (auto) 0.1 %; Immature Granulocytes # (auto) 0.14 K/uL (0.01-0.20); Immature Granulocytes % (auto) 0.7 %; Lymphocytes # (auto) 1.62 K/uL (1.20-3.40); Lymphocytes % (auto) 8.1 %; Monocytes # (auto) 1.94 K/uL (0.11-0.59); Monocytes % (auto) 9.7 %; Neutrophils # (auto) 16.23 K/uL (1.40-6.50); Neutrophils % (auto) 81.2 %; White Blood Count 20.01 K/ul (4.8-10.8)
[2024-06-17 14:49] LABS: Albumin Level 3.7 gm/dl (3.4-5.0); BUN Creatinine Ratio 15.7 (10-20); Bilirubin,Total 4.5 mg/dl (0.2-1.0); Calcium 8.9 mg/dl (8.6-10.3); Creatinine Clr Calc Pharmacy 53.4 ml/min; Globulin 3.8 gm/dl (2.5-4.0); Potassium 3.9 mmol/L (3.5-5.1); Total Protein 7.5 gm/dl (6.0-8.3)
[2024-06-17 15:07] LABS: Magnesium 1.6 mg/dl (1.7-2.4)
[2024-06-17] MEDS: OPTIRAY 320 100ml IV ONE (15:07)
--- NOTE | 2024-06-17 15:31 | Emergency Department Note ---
Impression & Plan Acute pancreatitis, Abdominal pain, Leukocytosis, KIM (acute kidney injury), Elevated procalcitonin, Acute hyponatremia, Hypomagnesemia ED Provider Note HISTORY OF PRESENT ILLNESS: Patient is a 59-year-old male presenting with abdominal pain. Patient reports that he developed abdominal pain starting 3 to 4 days ago. He reports initially was in the epigastric region but has since seemed to spread to his left lower quadrant. He states that he has been very nauseous and had an episode of vomiting 4 days ago. He went to his primary care provider's office 2 days ago and was given Zofran and famotidine and laboratory workup was ordered. Patient reports that he was called by his doctor today that his labs were abnormal and he should present to the emergency department given his persistent symptoms. Patient reports he is not tolerated oral intake in the last 4 days secondary to feeling so nauseous and having such an uncomfortable feeling in his abdomen. He denies any diarrhea. Denies any fevers or chills. He denies any chest pain or shortness of breath. ROS: as above PHYSICAL EXAM: Constitutional: Patient appears in no acute distress. HENT: Head: Normocephalic and atraumatic. Eyes: EOMI, PERRL Mouth/Throat: Mucous membranes moist. Neck: Trachea midline. Neck supple. Cardiovascular: RRR, No murmurs, rubs or gallops. Intact distal pulses. Pulmonary/Chest: No respiratory distress. Breath sounds clear and equal bilaterally. No wheezes or rales. Abdominal: Abdomen soft, no rebound or guarding. Epigastric and LLQ TTP Musculoskeletal: No edema, tenderness or deformity noted. Skin: Warm and dry. No rash, erythema, pallor or cyanosis Psychiatric: Appropriate mood and affect for situation. Neurological: Alert and keenly responsive. CN II-XII grossly intact, moving all extremities equally and fully. MDM: - Vitals signs showed tachycardia. - History obtained via patient. History as above. - Chronic conditions affecting care: HTN; GERD - Differential diagnoses include, but are not limited to: Choledocholithiasis; pancreatitis; diverticulitis; small bowel obstruction; colitis - Order placed for continuous cardiac monitoring. At this time, monitor showed rate of 83 bpm with normal sinus rhythm, per my interpretation. - External medical records reviewed. Primary care visit note dated 06/15/2024 was reviewed. Patient was seen for 24 hours of nausea, stomach pain and vomiting. They started the patient on Zofran and famotidine. - Laboratory workup interpreted by myself showed leukocytosis (WBC 20.01) with neutrophil predominance; hyponatremia (Na 128); KIM (Cr 1.72); hypomagnesemia (Mg 1.6); hyperbilirubinemia (total bili 4.5) with normal AST/ALT; normal lipase; elevated procalcitonin (0.55); normal lactate - CT abdomen/pelvis with IV contrast showed findings consistent with acute interstitial edematous pancreatitis. Colonic diverticulosis without diverticulitis. Noted to have hepatomegaly and mild cirrhosis. - Blood cultures obtained - Patient given 1L NS in ER and 1g IV tylenol for pain control - IV zosyn ordered for sepsis coverage - EKG and CXR added to workup for sepsis workup - EKG image interpreted by myself showed normal sinus rhythm. Rate 73 bpm. QT 416. No acute ischemic changes. - CXR image reviewed by myself negative for pneumonia, per my interpretation. - An additional 1L NS ordered (total 2L NS so far in ER). Patient's sepsis fluid volume calculation based on ideal body weight is 2181.60 mL. - Patient given 1g IV magnesium for electrolyte replacement - Discussion was had with case resolution specialist about patient's case and need for admission - Hospitalist consulted for admission - Patient admitted to [facility]ist service for further evaluation and management. 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 Iron deficiency anemia Gout (Chronic) Fatty liver (Chronic) Gastroesophageal reflux Hypertension (Chronic) Encounter for health maintenance examination in adult Screening for malignant neoplasm of prostate Medical History (Updated 06/17/24 @ 16:39 by Dodie Medina MD) Hyperlipidemia Pancreatic mass History of DVT in adulthood RLE - POST INJURY - TREATED W/ BLOOD THINNERS X 2-3 MONTHS Nodule of esophagus Rash History of gastrointestinal ulcer Enterocolitis Esophageal mass biopsied x2 (Summer 2019) benign Lyme disease History of gastric ulcer History of GI bleed Gout GERD (gastroesophageal reflux disease) Hypertension Surgical History History of herniorrhaphy H/O abdominal surgery History of left hip replacement History of tooth extraction History of laparotomy History of esophagogastroduodenoscopy (EGD) History of colonoscopy History of herniorrhaphy Family History Father Hypertension Stroke syndrome Mother Lymphoma Breast cancer Sister Hypertension MTHFR mutation Brother Hypertension Unknown Factor V Leiden mutation Denies family history of Ovarian cancer Prostate cancer Myocardial infarction Colorectal cancer Social History Smoking Status: Never smoker Tobacco Type: Smokeless Tobacco (Dip or Chew) Second Hand Exposure: No; Do You Dip or Chew Tobacco: Yes; Hx Alcohol Use: Yes Alcohol type: beer Alcohol Intake Frequency: 2-3 x/Week Hx Substance Use: No Preferred Language: Spanish Communication Ability: Effective Visual Impairment: No Limitations Human Resources 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 Required: No Beliefs That Will Affect Care: None marital status: Current Living Situation: Spouse current occupational status: employed 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 Feels Safe at Home: Yes Diet: regular caffeine: Yes (Sometimes) Dental Care, Regularly: Yes Physical Activity Frequency: Daily Seatbelt Use: always Sunscreen Use: Yes Assistive Devices: Glasses Allergies Allergies Allergy/AdvReac Type Severity Reaction Status Date / Time apixaban Allergy Intermediate NAUSEA, Verified 06/15/24 11:35 SHAKES, CHILLS Penicillins Allergy Mild HAPPENED Verified 06/15/24 11:35 A CHILD - UNKNOWN REACTION Home Meds Home Medications Medication Instructions Recorded Confirmed lecithin 1,200 mg capsule 1,200 mg PO QAM 11/18/17 06/17/24 multivitamin 1 tab PO QAM 11/18/17 06/17/24 cyanocobalamin (vitamin B-12) 1,000 mcg PO QAM 05/19/19 06/17/24 1,000 mcg tablet potassium gluconate 550 mg (90 mg) 550 mg PO QAM 05/19/19 06/17/24 tablet Previous Rx's Medication Instructions Recorded betamethasone dipropionate 0.05 % 1 applic topical DAILY #60 mL 10/16/23 lotion clobetasol 0.05 % topical cream 1 applic topical BID #60 grams 10/16/23 allopurinol 300 mg tablet 300 mg PO QAM #90 tabs 02/05/24 lisinopril 40 mg tablet 40 mg PO QAM #90 tabs 02/05/24 pantoprazole 40 mg tablet,delayed 40 mg PO QAM #90 tabs 02/05/24 release (Protonix) famotidine 20 mg tablet 20 mg PO BID PRN stomach upset #30 06/15/24 tabs ondansetron HCl 4 mg tablet 4 mg PO Q8H PRN nausea and 06/15/24 vomiting #30 tabs Results & Data (ED) Vital Signs Vital Signs - 24 hr 06/17/24 13:55 06/17/24 15:41 06/17/24 16:04 Temperature 36.5 C Temperature Source Temporal Artery Scan Pulse Rate 93 H 83 Pulse Rate [Apical] 75 Pulse Rhythm [Apical] Regular Pulse Strength [Apical] Normal Respiratory Rate 16 12 Respiratory Effort / Characteristics Non-Labored Spontaneous Non-Labored Spontaneous Respiratory Depth Normal Normal Respiratory Pattern Regular Blood Pressure 130/70 Blood Pressure [Right Arm] 110/63 Blood Pressure Mean 90 Blood Pressure Mean [Right Arm] 78 Blood Pressure Position [Right Arm] Lying Pulse Oximetry 94 92 Oxygen Delivery Method Room Air Room Air Sepsis Recent Fever Within 48 Hours No Sepsis New/Unexplained Change in Mental Status No Sepsis Action Taken by Nursing No Action Required 06/17/24 16:36 06/17/24 16:45 Temperature 37.5 C Temperature Source Oral Pulse Rate Pulse Rate [Apical] 77 Pulse Rhythm [Apical] Regular Pulse Strength [Apical] Normal Respiratory Rate 18 Respiratory Effort / Characteristics Non-Labored Spontaneous Respiratory Depth Normal Respiratory Pattern Regular Blood Pressure Blood Pressure [Right Arm] 116/73 Blood Pressure Mean Blood Pressure Mean [Right Arm] 87 Blood Pressure Position [Right Arm] Lying Pulse Oximetry 95 Oxygen Delivery Method Room Air Sepsis Recent Fever Within 48 Hours Sepsis New/Unexplained Change in Mental Status Sepsis Action Taken by Nursing Laboratory Data 06/17/24 14:07 06/17/24 14:07 Lab Results 06/17/24 06/17/24 Range/Units 14:07 16:04 WBC 20.01 H (4.8-10.8) K/ul RBC 4.12 L (4.70-6.10) M/uL Hgb 11.3 L (14.0-18.0) g/dl Hct 35.6 L (42.0-52.0) % MCV 86.4 (80.0-100.0) fL MCH 27.4 (25.0-34.0) pg MCHC 31.7 L (32.0-36.0) g/dL RDW Std Deviation 68.4 H (36.4-46.3) fL RDW Coeff of Huong 21.9 H (11.5-14.5) % Plt Count 157 (130-400) K/uL MPV 12.0 (9.4-12.4) fL Immature Gran % (Auto) 0.7 % Neut % (Auto) 81.2 % Lymph % (Auto) 8.1 % Dewitt % (Auto) 9.7 % Eos % (Auto) 0.1 % Baso % (Auto) 0.2 % Neut # (Auto) 16.23 H (1.40-6.50) K/uL Lymph # (Auto) 1.62 (1.20-3.40) K/uL Dewitt # (Auto) 1.94 H (0.11-0.59) K/uL Eos # (Auto) 0.03 (0.00-0.50) K/uL Baso # (Auto) 0.05 (0.00-0.20) K/uL Immature Gran # (Auto) 0.14 (0.01-0.20) K/uL Anisocytosis Present Sodium 128 L (136-145) mmol/L Potassium 3.9 (3.5-5.1) mmol/L Chloride 89 L (98-107) mmol/L Carbon Dioxide 29 (21-32) mmol/L Anion Gap 10 (3-11) BUN 27 H (6-23) mg/dl Creatinine 1.72 H D (0.6-1.4) mg/dl Est Cr Clr Drug Dosing 53.4 ml/min eGFR 45.79 BUN/Creatinine Ratio 15.7 (10-20) Glucose 116 H (70-99(Fasting)) mg/dl Lactate 1.4 (0.4-2.0) mmol/L Calcium 8.9 (8.6-10.3) mg/dl Magnesium 1.6 L (1.7-2.4) mg/dl Total Bilirubin 4.5 H (0.2-1.0) mg/dl AST 33 (13-39) U/L ALT 16 (7-52) U/L Alkaline Phosphatase 147 H (34-104) U/L Total Protein 7.5 (6.0-8.3) gm/dl Albumin 3.7 (3.4-5.0) gm/dl Globulin 3.8 (2.5-4.0) gm/dl Albumin/Globulin Ratio 1.0 (0.9-2) Lipase 59 (11-82) U/L Procalcitonin 0.55 H (0-0.5) ng/ml Administered Medications Discontinued Medications Sodium Chloride (Nss) 1,000 mls @ 999 mls/hr IV .Q1H1M ONE Stop: 06/17/24 15:46 Last Admin: 06/17/24 15:40 Dose: 999 mls/hr Documented By: COLLEEN Sodium Chloride (Nss) 1,000 mls @ 999 mls/hr IV .Q1H1M ONE Stop: 06/17/24 16:51 Last Admin: 06/17/24 16:08 Dose: 999 mls/hr Documented By: RADHA Piperacillin Sod/Tazobactam Sod (Zosyn) 4.5 gm in 100 mls @ 200 mls/hr IV NOW ONE; Protocol Stop: 06/17/24 16:31 Last Admin: 06/17/24 16:08 Dose: 200 mls/hr Documented By: RADHA Ioversol (Optiray 320 100ml) 93 ml IV ONCE ONE Stop: 06/17/24 15:08 Last Admin: 06/17/24 15:07 Dose: 93 ml Documented By: MARK ANTHONY Imaging Data Radiologist's Impression: Abdomen/Pelvis CT 06/17/24 14:[address] WITH IV CONTRAST CT DOSE: 1356.69 mGy.cm HISTORY: Acute lower abdominal pain lower abdomianl pain TECHNIQUE: Multiaxial CT images of the abdomen and pelvis were performed following the IV administration of 93 cc of Optiray, A dose lowering technique was utilized adhering to the principles of ALARA. COMPARISON STUDY: Liver ultrasound 02/05/2021, CT abdomen and pelvis 04/26/2016 FINDINGS: Small left pleural effusion is noted in conjunction with left hemidiaphragmatic elevation and linear left basilar consolidative opacities. There is no pneumatosis or pneumoperitoneum identified. Unremarkable spleen, and adrenal glands. Cholecystectomy. Hepatomegaly with hepatic steatosis. There is mild marginal nodularity of the liver. Patent portal vein. There is interstitial and peripancreatic edema involving the body and tail of the pancreas. Periportal lymph nodes measure up to 1.2 cm. Ascitic fluid noted within the lesser sac tracking along the greater curvature of the stomach and left pericolic gutter. No drainable fluid collections are seen. No pancreatic or biliary ductal dilation is seen. Unremarkable kidneys without hydronephrosis. Decompressed urinary bladder with wall thickening. Prostatomegaly. Atherosclerosis of the aorta without aneurysm. Mild wall thickening of the stomach is likely reactive. There are postoperative changes of the stomach. Colonic diverticulosis without acute diverticulitis. Small volume of ascitic fluid also noted within the pelvis. Normal appendix. There are postoperative changes of the anterior abdominal wall. Areas of omental nodularity are seen for example on image 178 series 3 with areas of central macroscopic fat. Chronic bilateral L5 pars defects with grade 1 anterolisthesis. Left hip arthroplasty. Avascular necrosis of the right femoral head. No acute fracture. IMPRESSION: 1. Findings compatible acute interstitial edematous pancreatitis. There is edema and ascitic fluid within the lesser sac without acute peripancreatic fluid collection. 2. Hepatic steatosis with hepatomegaly and mild cirrhosis. 3. Postoperative changes of the anterior abdominal wall with adjacent nodularity of the omentum which is favored to be on a postoperative basis. Attention on follow-up recommended. 4. Colonic diverticulosis without acute diverticulitis. 5. No bowel obstruction or bowel wall thickening. 6. Decompressed bladder with wall thickening. Correlate with urinalysis. 7. Avascular necrosis of the right femoral head. ACT 112: Negative or not required by law. The above report was generated using voice recognition software. It may contain grammatical, syntax or spelling errors. Electronically signed by: Veto Andersen M.D. 06/17/2024 3:48 PM Discharge Plan Visit Data Chief Complaint: Infection Stated Complaint: ABD PAIN, INFECTION IN ABD ED Provider: Dodie Medina Discharge Problem: Acute pancreatitis, Abdominal pain, Leukocytosis, KIM (acute kidney injury), Elevated procalcitonin, Acute hyponatremia, Hypomagnesemia Forms Stand Alone Forms: [facility] Prescriptions Prescriptions: No Action allopurinol 300 mg tablet 300 mg PO QAM Qty: 90 3RF lisinopril 40 mg tablet 40 mg PO QAM Qty: 90 3RF pantoprazole [Protonix] 40 mg tablet,delayed release (DR/EC) 40 mg PO QAM Qty: 90 3RF betamethasone dipropionate 0.05 % lotion 1 applic topical DAILY Qty: 60 3RF Rx Instructions: Apply to areas of the scalp once daily at bedtime x 3 weeks as needed for flaring. clobetasol 0.05 % cream 1 applic topical BID Qty: 60 3RF Rx Instructions: Apply to areas of the extremities twice daily x 2 weeks as directed for flaring. famotidine 20 mg tablet 20 mg PO BID PRN (Reason: stomach upset) Qty: 30 0RF ondansetron HCl 4 mg tablet 4 mg PO Q8H PRN (Reason: nausea and vomiting) Qty: 30 0RF cyanocobalamin (vitamin B-12) 1,000 mcg Tablet 1,000 mcg PO QAM potassium gluconate 550 mg (90 mg) Tablet 550 mg PO QAM multivitamin Tablet 1 tab PO QAM lecithin 1,200 mg Capsule 1,200 mg PO QAM Referrals Referrals: Howard Sarkar DO [Primary Care Provider] -
[2024-06-17] MEDS: SODIUM CHLORIDE 0.9% 1,000 ML IV ONE ×2 (15:40→16:08)
--- NOTE | 2024-06-17 15:49 | CT Scan Report ---
ABDOMEN AND PELVIS CT WITH IV CONTRAST CT DOSE: 1356.69 mGy.cm HISTORY: Acute lower abdominal pain lower abdomianl pain TECHNIQUE: Multiaxial CT images of the abdomen and pelvis were performed following the IV administrat ion of 93 cc of Optiray, A dose lowering technique was utilized adhering to the principles of ALARA. COMPARISON STUDY: Liver ultrasound 02/05/2021, CT abdomen and pelvis 04/26/2016 FINDINGS: Small left pleural effusion is noted in conjunction with left hemidiaphragmatic elevation a nd linear left basilar consolidative opacities. There is no pneumatosis or pneumoperitoneum identifie d. Unremarkable spleen, and adrenal glands. Cholecystectomy. Hepatomegaly with hepatic steatosis. There is mild marginal nodularity of the liver. Patent portal vein. There is interstitial and peripancreati c edema involving the body and tail of the pancreas. Periportal lymph nodes measure up to 1.2 cm. Asc itic fluid noted within the lesser sac tracking along the greater curvature of the stomach and left p ericolic gutter. No drainable fluid collections are seen. No pancreatic or biliary ductal dilation is seen. Unremarkable kidneys without hydronephrosis. Decompressed urinary bladder with wall thickening. Prost atomegaly. Atherosclerosis of the aorta without aneurysm. Mild wall thickening of the stomach is like ly reactive. There are postoperative changes of the stomach. Colonic diverticulosis without acute div erticulitis. Small volume of ascitic fluid also noted within the pelvis. Normal appendix. There are p ostoperative changes of the anterior abdominal wall. Areas of omental nodularity are seen for example on image 178 series 3 with areas of central macroscopic fat. Chronic bilateral L5 pars defects with grade 1 anterolisthesis. Left hip arthroplasty. Avascular necrosis of the right femoral head. No acut e fracture. IMPRESSION: 1. Findings compatible acute interstitial edematous pancreatitis. There is edema and ascitic fluid wi thin the lesser sac without acute peripancreatic fluid collection. 2. Hepatic steatosis with hepatomegaly and mild cirrhosis. 3. Postoperative changes of the anterior abdominal wall with adjacent nodularity of the omentum which is favored to be on a postoperative basis. Attention on follow-up recommended. 4. Colonic diverticulosis without acute diverticulitis. 5. No bowel obstruction or bowel wall thickening. 6. Decompressed bladder with wall thickening. Correlate with urinalysis. 7. Avascular necrosis of the right femoral head. ACT 112: Negative or not required by law. The above report was generated using voice recognition software. It may contain grammatical, syntax o r spelling errors. Electronically signed by: Veto Andersen M.D. 06/17/2024 3:48 PM
[2024-06-17] MEDS: PIPERACILLIN/TAZOBACTAM 4.5 GM/100 ML BAG IV ONE (16:08)
[2024-06-17] MEDS ORDERED: HYDROmorphone INJ 0.5 MG/0.5 ML SYR IV PRN ×2 (16:54)
[2024-06-17] MEDS ORDERED: ACETAMINOPHEN 500 MG TAB PO PRN (16:54)
--- NOTE | 2024-06-17 17:05 | History & Physical Report ---
Date of Service June 17, 2024 Assessment & Plan (1) Acute pancreatitis: (2) KIM (acute kidney injury): (3) Acute hyponatremia: (4) Hypomagnesemia: Plan This is a 59 year old male with past medical history of neuroendocrine tumor of pancreas s/p resection, gout, fatty liver, GERD who presented to the ED on 06/17 with abdominal pain. #Acute pancreatitis Patient w/ abdominal pain, nausea, vomiting ~4 days [employer]. Patient does feel better upon admission and was without pain. CTAP: acute interstitial edematous pancreatitis. edema & ascites fluid within lesser sac w/o acute peripancreatic fluid collection. Hepatic steatosis w/ hepatomegaly, mild cirrhosis. Colonic diverticulosis w/o acute diverticulitis. CXR pending; BC pending Urinalysis negative . CBC w/ leukocytosis of 20.01 w/ neutrophil predominance. Hgb 11.3 , plt low but normal. CMP w/ TB of 4.5, downtrending from earlier; AST/ALT WNL, AP 147 (chronic elevation) Lipase 59, Procalcitonin 0.55 s/p IV Zosyn in ED -> hold on admission. WBC/procal elevated secondary to inflammatory process of pancreas. Patient VS remain stable following IVF. Continue IV LR @ 125ml/hr x 24 hours to promote rehydration. Pain regimen: Tylenol prn 1st line, Dilaudid prn 2nd line Zofran prn for N/V NPO, allowed sips & chips --> if patient continues to progress can start clear liquids tomorrow morning. #KIM Baseline creatinine ~1 - 1.3 1.72 on admission, secondary to poor PO intake recently Continue IVF w/ LR @ 125ml/hr x 24 hours #Hyponatremia/Hypomagnesemia Na 128, Mag 1.6, secondary to poor intake s/p IV Mag & IVF AM CMP, BMP Chronic conditions: HTN: Lisinopril, hold while NPO, BP normotensive Gout: allopurinol GERD: Pepcid, Pantoprazole DVT prophylaxis: Lovenox Full Code Case was discussed with Dr. Llanes at time of admission. History of Present Illness Primary Care Provider: Howard Sarkar, This is a 59 year old male with past medical history of neuroendocrine tumor of pancreas s/p resection, gout, fatty liver, GERD who presented to the ED on 06/17 with abdominal pain. Patient was seen and examined this evening. Patient reports that for about the last ~4 days he has been experiencing epigastric abdominal pain with radiation to his LLQ. He had one episode of emesis ~4 days ago but has been nauseous since. He had went to his PCP's office on the and was referred to the ER after the lab abnormalities. He was found to have leukocytosis & hyperbilirubinemia on outpatient labs. presently, he feels his pain is improving. He felt earlier today that he could have ate something but did not. He reports very little intake over the last four days due to his pain/nausea. He reports he was constipated and took milk of mag. He then produced a few BM's. He does report if he takes a deep breath he notices worsening abdominal pain. He denies chest pain or shortness of breath. Denies any urinary symptoms. While in the ED, patient had a CTAP that did reveal acute pancreatitis. He had an elevated WBC at 20.01, hgb 11.3. BMP w/ low Na at 128, creatinine elevated at 1.72, Mag low at 1.6. TB elevated at 4.5 but was improved from previous (4.9), AP 147, AST/ALT WNL. Lipase normal at 59 and procal elevated at 0.55. CXR read pending. Allergies Allergy/AdvReac Type Severity Reaction Status Date / Time apixaban Allergy Intermediate NAUSEA, Verified 06/15/24 11:35 SHAKES, CHILLS Penicillins Allergy Mild HAPPENED Verified 06/15/24 11:35 A CHILD - UNKNOWN REACTION Home Medications Medication Instructions Recorded Confirmed Type lecithin 1,200 mg capsule 1,200 mg PO QAM 11/18/17 06/17/24 History multivitamin 1 tab PO QAM 11/18/17 06/17/24 History cyanocobalamin (vitamin B-12) 1,000 mcg PO QAM 05/19/19 06/17/24 History 1,000 mcg tablet potassium gluconate 550 mg (90 mg) 550 mg PO QAM 05/19/19 06/17/24 History tablet betamethasone dipropionate 0.05 % 1 applic topical DAILY #60 mL 10/16/23 06/17/24 Rx lotion clobetasol 0.05 % topical cream 1 applic topical BID #60 grams 10/16/23 06/17/24 Rx allopurinol 300 mg tablet 300 mg PO QAM #90 tabs 02/05/24 06/17/24 Rx lisinopril 40 mg tablet 40 mg PO QAM #90 tabs 02/05/24 06/17/24 Rx pantoprazole 40 mg tablet,delayed 40 mg PO QAM #90 tabs 02/05/24 06/17/24 Rx release (Protonix) famotidine 20 mg tablet 20 mg PO BID PRN stomach upset #30 06/15/24 06/17/24 Rx tabs ondansetron HCl 4 mg tablet 4 mg PO Q8H PRN nausea and 06/15/24 06/17/24 Rx vomiting #30 tabs Past Med/Surg History Problem List (Updated 06/17/24 @ 17:11 by Violeta Logan PA-C) Hypomagnesemia (Acute) Acute hyponatremia (Acute) Elevated procalcitonin (Acute) KIM (acute kidney injury) (Acute) Leukocytosis (Acute) Abdominal pain (Acute) Acute pancreatitis (Acute) Neuro-endocrine carcinoma History of melanoma in situ Iron deficiency anemia Gout (Chronic) Fatty liver (Chronic) Gastroesophageal reflux Hypertension (Chronic) Encounter for health maintenance examination in adult Screening for malignant neoplasm of prostate Medical History (Updated 06/17/24 @ 17:11 by Violeta Logan PA-C) Hyperlipidemia Pancreatic mass History of DVT in adulthood RLE - POST INJURY - TREATED W/ BLOOD THINNERS X 2-3 MONTHS Nodule of esophagus Rash History of gastrointestinal ulcer Enterocolitis Esophageal mass biopsied x2 (Summer 2019) benign Lyme disease History of gastric ulcer History of GI bleed Gout GERD (gastroesophageal reflux disease) Hypertension Surgical History History of herniorrhaphy H/O abdominal surgery History of left hip replacement History of tooth extraction History of laparotomy History of esophagogastroduodenoscopy (EGD) History of colonoscopy History of herniorrhaphy Family History Father Hypertension Stroke syndrome Mother Lymphoma Breast cancer Sister Hypertension MTHFR mutation Brother Hypertension Unknown Factor V Leiden mutation Denies family history of Ovarian cancer Prostate cancer Myocardial infarction Colorectal cancer Social History Smoking Status: Never smoker Tobacco Type: Smokeless Tobacco (Dip or Chew) Second Hand Exposure: No; Do You Dip or Chew Tobacco: No; Hx Alcohol Use: Yes Alcohol type: beer Alcohol Intake Frequency: 2-3 x/Week Hx Substance Use: No Preferred Language: Spanish Communication Ability: Effective Visual Impairment: No Limitations 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 Beliefs That Will Affect Care: None marital status: Current Living Situation: Spouse current occupational status: employed 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 Neurologic: PERRL, EOMI, accommodation nl, no face palsy, no dysarthria Psychiatric: A+Ox3, euthymic affect Results & Data Results & Data Vital Signs (Past 12 Hours) Vital Signs Temp Pulse Pulse Resp BP BP Pulse Ox 06/17/24 16:45 77 18 116/73 95 06/17/24 16:36 37.5 C 06/17/24 16:04 83 06/17/24 15:41 75 12 110/63 92 06/17/24 13:55 36.5 C 93 H 16 130/70 94 O2 Del Method 06/17/24 16:45 Room Air 06/17/24 16:36 06/17/24 16:04 06/17/24 15:41 Room Air 06/17/24 13:55 Room Air Supervising Physician Co-Signing Physician Notes During face to face encounter, I obtained a history and physical examination, discussed plan of care with patient and answered any questions. I discussed plan of care with DANY Logan. I reviewed above note and agree with it except for the following: Patient will be admitted for pancreatitis. Patient will be NPO with IVF. PG Care Time/CCT Total # of Minutes Spent Total Time Spent with Patient: Total time spent is greater than 50% in coordination of care (as documented) at patient's floor/unit and/or counseling patient: Coding Level of Care Code 22038 INT INP/OBS CARE MIN Diagnoses Acute pancreatitis K85.90 Pancreatitis type: unspecified pancreatitis type KIM (acute kidney injury) N17.9 Acute hyponatremia E87.1 Hypomagnesemia E83.42 (1) Acute pancreatitis Pancreatitis type: unspecified pancreatitis type
[2024-06-17 17:13] LABS: Appearance Urine Clear (Clear); Bacteria Urine Automated None Seen (None Seen); Bilirubin Urine 1+ (Negative); Blood Urine Negative (Negative); Cast Urine Automated 0-2 /lpf (0-2); Color Urine Orange; Epithelial Cell Urine Auto 0-2 /hpf (0-2); Glucose Urine UA Negative (Negative); Ketones Urine Trace (Negative); Leukocyte Esterase Urine Trace (Negative); Nitrite Urine Positive (Negative); Protein Urine 1+ (Negative); RBC Urine Automated 0-2 /hpf (0-2); Specific Gravity Urine > 1.045 (1.000-1.030); Urobilinogen Urine Negative (Negative); WBC Urine Automated 0-5 /hpf (0-5); pH Urine 5.5 (4.5-7.5)
--- NOTE | 2024-06-17 18:14 | XRay Report ---
EXAM: XR chest 1V portable CLINICAL HISTORY: sepsis. TECHNIQUE: An X-ray image of the chest is obtained in AP projection. COMPARISON: 11/23/2017 FINDINGS: Pulmonary Parenchyma: Left mid lung zone paracardiac thick band area of opacification. No pulmonary nodules are identified. No evidence of pleural effusion or pleural thickening. Heart and Mediastinum: Heart size is border line in an AP image. No mediastinal widening or masses. No hilar or mediastinal lymphadenopathy. Bony Thorax: Bony thorax appears intact without fractures or deformities. Soft Tissues: Soft tissues overlying the chest wall are unremarkable. IMPRESSION: 1. Left mid lung zone paracardiac thick band area of opacification. Suspected atelectatic band with possible associated small infiltrate . New finding. 2. Correlate clinically. Electronically signed by Elliott Sarkar 06-17-2024 6:13 PM
[2024-06-17] MEDS ORDERED: FAMOTIDINE 20 MG TAB PO PRN (18:17)
[2024-06-17] MEDS: MAGNESIUM SULFATE / D5W 1 GM/100 ML BAG IV STA (18:17)
[2024-06-17] MEDS ORDERED: ONDANSETRON 4 MG OD TAB PO PRN (18:23)
[2024-06-17] MEDS: LACTATED RINGER'S 1,000 ML IV SCH (20:20)
[2024-06-17] MEDS: CLOBETASOL PROPIONATE 0.05% CREAM 15 GM TUBE TOP SCH (20:20)
[2024-06-17] MEDS: HEPARIN SOD 5,000 UNIT/0.5 ML VIAL SQ SCH (20:20)
[2024-06-18 03:43] VITALS: TEMP 98.6
[2024-06-18 07:38] VITALS: RESP 18
[2024-06-18] MEDS: allopurinoL 300 MG TAB PO SCH (07:44)
[2024-06-18] MEDS: MULTIVITAMIN TAB PO SCH (07:45)
[2024-06-18] MEDS: CYANOCOBALAMIN (B-12) 500 MCG TABLET PO SCH (07:45)
[2024-06-18] MEDS: PANTOprazole 40 MG TAB PO SCH (07:46)
[2024-06-18 07:58] LABS: Hematocrit (blood only) 31.6 % (42.0-52.0); Mean Corpuscular Hemoglobin 27.5 pg (25.0-34.0); Mean Corpuscular Hgb Conc 31.6 g/dL (32.0-36.0); Mean Corpuscular Volume 87.1 fL (80.0-100.0); Mean Platelet Volume 11.6 fL (9.4-12.4); Platelet Count 123 K/uL (130-400); RDW Coefficient of Variation 21.9 % (11.5-14.5); RDW Standard Deviation 68.7 fL (36.4-46.3); Red Blood Count 3.63 M/uL (4.70-6.10)
[2024-06-18 08:24] LABS: Albumin Globulin Ratio 0.9 (0.9-2); Albumin Level 2.9 gm/dl (3.4-5.0); BUN Creatinine Ratio 18.7 (10-20); Bilirubin Direct 1.3 mg/dl (0-0.2); C Reactive Protein 14.43 mg/dl (0-0.5); Calcium 8.2 mg/dl (8.6-10.3); Globulin 3.3 gm/dl (2.5-4.0); Magnesium 1.7 mg/dl (1.7-2.4); Potassium 3.7 mmol/L (3.5-5.1); Total Protein 6.2 gm/dl (6.0-8.3)
--- NOTE | 2024-06-18 09:01 | Electrocardiogram Report ---
Test Reason : Blood Pressure : */* mmHG Vent. Rate : 73 BPM Atrial Rate : 73 BPM P-R Int : 146 ms QRS Dur : 96 ms QT Int : 416 ms P-R-T Axes : 21 -33 18 degrees QTcB Int : 458 ms Normal sinus rhythm with sinus arrhythmia Left axis deviation Minimal voltage criteria for LVH, may be normal variant Abnormal ECG When compared with ECG of 16-Sep-2019 06:13, No significant change was found Confirmed by Rodriguez Richardson ([id number]) on 06/18/2024 9:00:57 AM Referred By: Howard Sarkar Confirmed By: Rodriguez Richardson
[2024-06-18 11:27] VITALS: BP 116/72; O2SAT 92
--- NOTE | 2024-06-18 13:23 | Discharge Summary ---
Discharge Summary Date of Service June 18, 2024 Principal Dx & Hospital Course #1 = Principal Diagnosis (1) Acute pancreatitis: (2) KIM (acute kidney injury): (3) Acute hyponatremia: (4) Hypomagnesemia: Plan This is a 59 year old male with past medical history of neuroendocrine tumor of pancreas s/p resection, gout, fatty liver, GERD who presented to the ED on 06/17 with abdominal pain. #Acute pancreatitis Patient w/ abdominal pain, nausea, vomiting ~4 days [employer]. Patient does feel better upon admission and was without pain. CTAP: acute interstitial edematous pancreatitis. edema & ascites fluid within lesser sac w/o acute peripancreatic fluid collection. Hepatic steatosis w/ hepatomegaly, mild cirrhosis. Colonic diverticulosis w/o acute diverticulitis. CXR negative; BC pending, given downtrending of WBC/Procal, VS stable suspect BC are negative. Urinalysis negative Lipase WNL on admission CBC w/ downtrending leukocytosis (11.30). CMP w/ downtrending TB , AST/ALT WNL, AP slightly elevated but chronic. Procal downtrending to 0.40 s/p 1 dose IV Zosyn, no further needed due to absence of infection. s/p IVF Patient has not required pain medication during his hospital stay. Advanced to low fat diet prior to discharge, tolerating well. Recommend patient follow closely w/ his PCP and have a repeat scan of his pancreas in 4-6 weeks. Also recommend to follow up closely [place]/ [place] [place] #KIM Baseline creatinine ~1 - 1.3 Secondary to poor PO intake, resolved. #Hyponatremia/Hypomagnesemia Na improvement to 133 Mag 1.7, resolved. Chronic conditions: HTN: Lisinopril Gout: allopurinol GERD: Pepcid, Pantoprazole Patient discharged home 06/18. Admission HPI Per Admitting Provider This is a 59 year old male with past medical history of neuroendocrine tumor of pancreas s/p resection, gout, fatty liver, GERD who presented to the ED on 06/17 with abdominal pain. Patient was seen and examined this evening. Patient reports that for about the last ~4 days he has been experiencing epigastric abdominal pain with radiation to his LLQ. He had one episode of emesis ~4 days ago but has been nauseous since. He had went to his PCP's office on the and was referred to the ER after the lab abnormalities. He was found to have leukocytosis & hyperbilirubinemia on outpatient labs. presently, he feels his pain is improving. He felt earlier today that he could have ate something but did not. He reports very little intake over the last four days due to his pain/nausea. He reports he was constipated and took milk of mag. He then produced a few BM's. He does report if he takes a deep breath he notices worsening abdominal pain. He denies chest pain or shortness of breath. Denies any urinary symptoms. While in the ED, patient had a CTAP that did reveal acute pancreatitis. He had an elevated WBC at 20.01, hgb 11.3. BMP w/ low Na at 128, creatinine elevated at 1.72, Mag low at 1.6. TB elevated at 4.5 but was improved from previous (4.9), AP 147, AST/ALT WNL. Lipase normal at 59 and procal elevated at 0.55. CXR read pending. Discharge Exam Constitutional WD/WN, vitals as above Eyes PERRL, conjunctivae normal, anicteric sclerae ENMT external ear and nose normal, oropharynx normal Respiratory normal respiratory effort, lungs clear to auscultation Cardiovascular RRR, no murmur, no edema Neurologic PERRL, EOMI, accommodation nl, no face palsy, no dysarthria Psychiatric A+Ox3, euthymic affect Discharge Plan Discharge Items Patient Disposition: Home - Self-Care Reason For Visit: ABDOMINAL PAIN Discharge Diagnosis: Acute pancreatitis Activity: Resume your previous activity Non-emergency contact: Primary Care Provider and Air Battle Manager Call non-emergency contact if: you have any medication questions, your symptoms worsen, your pain is not controlled and you have a fever Follow-up/Referrals: Howard Sarkar, [Primary Care Provider] - 06/24/24 1:00 pm Diet: Low Fat Addtl Attending Provider Instructions: Mr. Childress, You were recently hospitalized for abdominal pain and were found to have acute pancreatitis. Please see recommendations below regarding your discharge. Please continue to drink plenty of fluids. Please try to eat foods low in fat and that avoid GI upset until you feel your stomach return to normal. You do not require any antibiotics on discharge. You may resume the remainder of your outpatient medications. Please follow up with your PCP within 1-2 weeks of discharge, at that visit a repeat CT scan of your abdomen should be discussed to ensure the pancreatitis resolved. Please follow up with your criminal judge. If you develop any severe abdominal pain, fevers, chest pain, shortness of breath please report back to the ER for further care. Best of Violeta Garcia PA-C Pending Studies at Discharge: Yes Studies:: Blood cultures Stand-Alone Forms: My [facility], Work/School Release, Smoking Cessation Medications and DC Order Prescriptions: Continued allopurinol 300 mg tablet 300 mg PO QAM Qty: 90 3RF lisinopril 40 mg tablet 40 mg PO QAM Qty: 90 3RF pantoprazole [Protonix] 40 mg tablet,delayed release (DR/EC) 40 mg PO QAM Qty: 90 3RF betamethasone dipropionate 0.05 % lotion 1 applic topical DAILY Qty: 60 3RF Rx Instructions: Apply to areas of the scalp once daily at bedtime x 3 weeks as needed for flaring. clobetasol 0.05 % cream 1 applic topical BID Qty: 60 3RF Rx Instructions: Apply to areas of the extremities twice daily x 2 weeks as directed for flaring. famotidine 20 mg tablet 20 mg PO BID PRN (Reason: stomach upset) Qty: 30 0RF ondansetron HCl 4 mg tablet 4 mg PO Q8H PRN (Reason: nausea and vomiting) Qty: 30 0RF cyanocobalamin (vitamin B-12) 1,000 mcg Tablet 1,000 mcg PO QAM potassium gluconate 550 mg (90 mg) Tablet 550 mg PO QAM multivitamin Tablet 1 tab PO QAM lecithin 1,200 mg Capsule 1,200 mg PO QAM Discharge Orders: Discharge Order (Routine); Ordered 06/18/24 Ordered By: Violeta Logan Admission Data Admit Date/Time: 06/17/24 16:54 Attending Provider: Arleen Beaulieu Admit Provider: Jordan Llanes Primary Care Provider: Howard Sarkar Other Providers: Jordan Llanes Other Interventions: Discharge Summary Assessment (RN) Last Done: 06/18/24 13:25 Hospital Stay Data Consultations 06/17/24 16:53 ED Decision to Admit Stat Diagnostic Imagining Performed 06/17/24 14:45 CT Abd and Pelvis [CT abd pelvis IV con only] Stat Pending Results Patient Have Any Pending Studies at Discharge: Yes Discharge Instructions Given to Patient (Per Discharging Provider) Mr. Childress, You were recently hospitalized for abdominal pain and were found to have acute pancreatitis. Please see recommendations below regarding your discharge. Please continue to drink plenty of fluids. Please try to eat foods low in fat and that avoid GI upset until you feel your stomach return to normal. You do not require any antibiotics on discharge. You may resume the remainder of your outpatient medications. Please follow up with your PCP within 1-2 weeks of discharge, at that visit a repeat CT scan of your abdomen should be discussed to ensure the pancreatitis resolved. Please follow up with your criminal judge. If you develop any severe abdominal pain, fevers, chest pain, shortness of breath please report back to the ER for further care. Best of Violeta Garcia PA-C Total Time Total Time Spent Total Time Spent (In Minutes): 45 Total Time Includes: Examination of the Patient, Discharge Planning and Medication Reconciliation Coding Level of Care Code 87044 INP/OBS DISCH >30 MIN Diagnoses Acute pancreatitis K85.90 Pancreatitis type: unspecified pancreatitis type KIM (acute kidney injury) N17.9 Acute hyponatremia E87.1 Hypomagnesemia E83.42
[2024-06-18 13:27] VITALS: PULSE 73
== END 2024-06-18 14:24 | disposition home or self-care (01) ==
LOC: SUATTDRO → ED 13:39 → SUATTDRO 16:54 → 2W 16:54 → INTOOBSV 16:54 → 2W 18:03
DX: Z88.8 Allergy status to other drugs, medicaments and biological substances; K21.9 Gastro-esophageal reflux disease without esophagitis; M87.9 Osteonecrosis, unspecified; K57.90 Diverticulosis of intestine, part unspecified, without perforation or abscess without bleeding; I10 Essential (primary) hypertension; M10.9 Gout, unspecified; F17.220 Nicotine dependence, chewing tobacco, uncomplicated; E83.42 Hypomagnesemia; Z79.899 Other long term (current) drug therapy; K76.0 Fatty (change of) liver, not elsewhere classified; K85.90 Acute pancreatitis without necrosis or infection, unspecified; Z88.0 Allergy status to penicillin; N17.9 Acute kidney failure, unspecified; E87.1 Hypo-osmolality and hyponatremia